=== PATIENT | male | born 1930 | race American Indian/Alaskan Native ===

== ENCOUNTER 2019-12-13 11:22 | Inpatient (IN) ==
[2019-12-13] MEDS ORDERED: IOPAMIDOL 100 ML BOTTLE IV ONE (11:23)
[2019-12-13] MEDS ORDERED: 0.9 % SODIUM CHLORIDE 1,000 ML IV ONE ×2 (11:28→14:56)
[2019-12-13] MEDS ORDERED: IPRATROPIUM/ALBUTEROL 3 ML AMPUL.NEB NEB ONE (12:11)
[2019-12-13] MEDS ORDERED: PIPERACILLIN SODIUM/TAZOBACTAM 3.375 GM in DEXTROSE 5% IN WATER 50 ML IV ONE (12:11)
[2019-12-13] MEDS ORDERED: ACETAMINOPHEN 325 MG TABLET PO ONE ×2 (12:13→13:57)
--- NOTE | 2019-12-13 12:22 | Emergency Department Note ---
Fever HPI - General Chief Complaint: Fever Stated Complaint: fever Time Seen by Provider: 12/13/19 11:27 Source: patient Mode of arrival: ambulatory Limitations: no limitations - History of Present Illness HPI Narrative: 89-year-old male comes in for high fever of 103+. He does get UTIs and has a history of prostate cancer. Has a history of sepsis as well. He did not know he had a fever but the visiting nurse this morning noticed a fever. He denies any nausea vomiting diarrhea or trouble breathing. He does have a chronic cough which he attributes to his COPD. He has not smoked since the 1950s. Denies any recent exposures or travel Notable gross hearing loss, so most history is from his -however he is answering questions appropriately - Related Data Home Medications Medication Instructions Recorded Confirmed aspirin 81 mg tablet,delayed 81 mg PO QDAY tab 04/09/15 12/13/19 release calcitriol 0.25 mcg capsule 0.25 mcg PO QDAY cap 04/09/15 12/13/19 travoprost 0.004 % eye drops 2.5 drp OPHTHALMIC ONCE ml 04/09/15 12/13/19 lisinopril 20 mg tablet 25 mg PO QDAY 10/05/16 12/13/19 ergocalciferol (vitamin D2) 1,000 2,000 unit PO QDAY cap 11/08/18 12/13/19 unit capsule glipizide 10 mg tablet 10 mg PO BID 11/08/18 12/13/19 insulin detemir U-100 100 unit/mL 15 unit SUB-Q QDAY ml 11/08/18 12/13/19 (3 mL) subcutaneous pen magnesium L-lactate 84 mg 168 mg PO BID 11/08/18 12/13/19 tablet,extended release timolol 0.5 % eye drops 1 drp OPHTHALMIC BID 02/15/19 12/13/19 Tamsulosin [Flomax] 1 tab PO DAILY 12/13/19 12/13/19 Previous Rx's Medication Instructions Recorded Acetaminophen [Tylenol] 650 mg PO Q4HP PRN #0 tab 10/26/15 Allergies Allergy/AdvReac Type Severity Reaction Status Date / Time No Known Drug Allergies Allergy Verified 12/13/19 11:28 Review of Systems All systems ED: reviewed and negative except as stated. Fever PMH - Past Medical History Attestation: Yes: The following information was validated with the patient. [facility] Narrative: Family History (Last Reviewed 02/22/19 @ 09:05 by Emily Webb, [place]) Sister Alcohol abuse Brother Diabetes mellitus Mother Multiple myeloma Father Acute myocardial infarction Stroke Family/Other Heart disease Medical History (Last Reviewed 02/22/19 @ 09:05 by Emily Webb RN) Dry eye (Chronic) Primary open angle glaucoma (Chronic) Worried well (Chronic) Pain in right arm (Chronic) Edema leg (Chronic) Hypotensive syncope (Chronic) UTI (urinary tract infection) (Chronic) Allergic rhinitis (Chronic) Tinea pedis (Chronic) Cellulitis of foot (Chronic) Sensory hearing loss, bilateral (Chronic) H/O echocardiogram (Chronic 2017) Uses hearing aid (Chronic) Pain, eye, right (Chronic) Diabetic peripheral neuropathy (Chronic) Abnormal carotid duplex scan (Chronic) Eosinophilia (Chronic) Colon polyps (Chronic) Carcinoma of prostate (Chronic) Punctate keratitis (Chronic) Tinea corporis (Chronic) Fatigue (Chronic) Herpes zoster (Chronic) Skin lesion (Chronic) Magnesium deficiency (Chronic) Rash (Chronic) Presbyopia (Chronic) Regular astigmatism (Chronic) Myopia (Chronic) Abnormal echocardiogram (Chronic) Vitamin B12 deficiency (Chronic) Edema (Chronic) Cellulitis (Chronic) Syncope due to orthostatic hypotension (Chronic) Multisensory dizziness (Chronic) Dressing change or removal, surgical wound (Chronic) Frequent nosebleeds (Chronic) Vertigo (Chronic) Bruises easily (Chronic) IBS (irritable bowel syndrome) (Chronic) Chronic UTI (Chronic) Laceration of face (Chronic) Sepsis (Chronic) Sepsis (Chronic) Atypical chest pain (Chronic) Retinopathy, diabetic, background (Chronic) History of prostate cancer (Chronic 08/14/14) Neuropathy in diabetes (Chronic) 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) Hyperlipidemia (Chronic) Hypertensive renal disease (Chronic) Controlled diabetes mellitus with neurological manifestations (Chronic) Counseling and coordination of care (Chronic) Chronic obstructive asthma (Chronic) Anemia (Chronic) COPD (chronic obstructive pulmonary disease) (Chronic) Hearing loss (Chronic) Kidney disease, chronic, stage III (GFR 30-59 ml/min) (Chronic) Meningioma (Chronic) Abnormal gait (Chronic) BPPV (benign paroxysmal positional vertigo) (Chronic) Eosinophilia (Chronic) Asthma (Chronic) Daytime somnolence (Chronic) Vitamin D deficiency (Chronic) Cataract (Chronic) Glaucoma (Chronic) Onychomycosis due to dermatophyte (Chronic) Colon polyps (Chronic) Melanosis coli (Chronic) Prostate cancer (Chronic) Microalbuminuria (Chronic) Diabetes mellitus, type II (Chronic) Psoriasis (Chronic) Hammer toe of left foot (Chronic) Hypertension (Chronic) Retinal tear (Chronic) Urinary incontinence (Chronic) Dysuria (Chronic) Hematuria (Chronic) Prostate cancer (Chronic) Past Surgical History (Last Reviewed 02/22/19 @ 09:05 by Emily Webb RN) Hx of cataract surgery (Chronic) Detached retina (Chronic 03/02/11) History of cholecystectomy (Chronic 2010) History of appendectomy (Chronic 1994) H/O eye surgery (Chronic) H/O mastoidectomy (Chronic) H/O prostate biopsy (Chronic) History of surgical removal of lesion (Chronic) S/P PICC central line placement (Chronic ~2015) S/P debridement (Chronic) S/P laser cataract surgery (Chronic) Medical history: Reports: cancer (Prostate), COPD, DM, hyperlipidemia, hypertension, renal disease, other Family history: Reports: non-contributory - Social History smoking status: Former smoker Alcohol use: Reports: None Drug use: Reports: none Physical Exam No acute distress resting comfortably. Normocephalic atraumatic. Bilateral eyes are with injected conjunctiva-he does have chronic glaucoma. No nasal discharge or congestion is noted. However he did cough twice during my interview and exam-he states this is his chronic COPD cough. Oropharynx is pink and moist. Neck is supple without lymphadenopathy or thyromegaly. Heart is regular rate and rhythm no murmur appreciated. Lungs are basically clear to auscultation but he does have end expiratory wheezing-tight breathing-but he can speak in full sentences and oxygen levels are okay. Abdomen is soft nontender nondistended. No peritoneal signs or guarding. No pedal edema. He can sit up for my exam with minimal assistance Limitations: no limitations Course Vital Signs Temperature 101.7 F H 12/13/19 11:23 Pulse Rate 135 H 12/13/19 11:23 Respiratory Rate 20 12/13/19 11:23 Blood Pressure 174/92 12/13/19 11:23 Pulse Oximetry (%) 93 12/13/19 11:23 Temperature 101.7 F H 12/13/19 11:23 Pulse Rate 135 H 12/13/19 11:23 Respiratory Rate 20 12/13/19 11:23 Blood Pressure 174/92 12/13/19 11:23 Pulse Oximetry (%) 93 12/13/19 11:23 Fever - Lab Data Lab results reviewed: Yes I reviewed the patient's lab results. Result diagrams: 12/13/19 11:39 12/13/19 11:39 Lab Results 12/13/19 12/13/19 12/13/19 Range/Units 11:39 11:39 11:39 WBC 14.5 H (4.50-11.00) K/mcL RBC 4.21 L (4.63-6.08) M/mcL Hgb 12.4 L (13.7-17.5) g/dL Hct 38.0 L (40.1-51.0) % MCV 90.3 (80.0-100.0) fL MCH 29.5 (26.0-34.0) pg MCHC 32.6 (31.0-36.0) g/dL RDW 13.2 (11.5-14.5) % Plt Count 244 (140-440) K/mcL MPV 9.6 (7.4-10.4) fL Gran % 90.5 H (38.0-78.0) % Lymph % (Auto) 3.5 L (15.5-49.0) % [place] % (Auto) 4.7 (1.0-12.0) % Eos % (Auto) 1.0 (0.0-7.0) % Baso % (Auto) 0.3 (0.0-2.0) % Gran # 13.13 H (1.80-8.00) K/mcL Lymph # (Auto) 0.50 L (1.50-4.80) K/mcL [place] # (Auto) 0.68 (0.10-0.90) K/mcL Eos # (Auto) 0.14 (0.00-0.70) K/mcL Baso # (Auto) 0.04 (0.00-0.30) K/mcL VBG Lactic Acid (0.5-2.0) mmol/L Sodium 130 L (133-145) mmol/L Potassium 4.8 (3.3-5.1) mmol/L Chloride 97 (96-108) mmol/L Carbon Dioxide 25 (22-30) mmol/L Anion Gap 8.0 (8-16) BUN 37 H (8-23) mg/dl Creatinine 1.4 H (0.7-1.2) mg/dl GFR Calculation 44 Glucose 269 H (70-105) mg/dL Calcium 8.9 (8.6-10.4) mg/dl Total Bilirubin 0.7 (0.0-1.0) mg/dL AST 28 (0-37) U/l ALT 26 (0-40) U/l Alkaline Phosphatase 128 H (39-117) U/L Total Protein 8.7 H (5.9-8.4) gm/dL Albumin 3.5 (3.2-5.2) gm/dL Globulin 5.2 H (2.2-3.7) gm/dL Albumin/Globulin Ratio 0.7 L (1.0-2.3) Procalcitonin 0.27 (<0.10) ng/mL Urine Color Urine Appearance Urine pH (5.0-9.0) Ur Specific [place] (1.000-1.035) Urine Protein (NEG) mg/dL Urine Glucose (UA) (NEG) mg/dL Urine Ketones (NEG) mg/dL Urine Occult Blood (<0.03) mg/dL Urine Nitrate (NEG) Urine Bilirubin (NEG) mg/dL Urine Urobilinogen (NEG) mg/dL Ur Leukocyte Esterase (NEG) /uL Urine RBC (0-1) /hpf Urine WBC (0-4) /hpf Ur Squamous Epith Cells (0-4) /hpf Urine Bacteria (0) /hpf Urine Mucus (0) /hpf Ur Culture Indicated? 12/13/19 12/13/19 Range/Units 11:39 12:00 WBC (4.50-11.00) K/mcL RBC (4.63-6.08) M/mcL Hgb (13.7-17.5) g/dL Hct (40.1-51.0) % MCV (80.0-100.0) fL MCH (26.0-34.0) pg MCHC (31.0-36.0) g/dL RDW (11.5-14.5) % Plt Count (140-440) K/mcL MPV (7.4-10.4) fL Gran % (38.0-78.0) % Lymph % (Auto) (15.5-49.0) % [place] % (Auto) (1.0-12.0) % Eos % (Auto) (0.0-7.0) % Baso % (Auto) (0.0-2.0) % Gran # (1.80-8.00) K/mcL Lymph # (Auto) (1.50-4.80) K/mcL [place] # (Auto) (0.10-0.90) K/mcL Eos # (Auto) (0.00-0.70) K/mcL Baso # (Auto) (0.00-0.30) K/mcL VBG Lactic Acid 1.0 (0.5-2.0) mmol/L Sodium (133-145) mmol/L Potassium (3.3-5.1) mmol/L Chloride (96-108) mmol/L Carbon Dioxide (22-30) mmol/L Anion Gap (8-16) BUN (8-23) mg/dl Creatinine (0.7-1.2) mg/dl GFR Calculation Glucose (70-105) mg/dL Calcium (8.6-10.4) mg/dl Total Bilirubin (0.0-1.0) mg/dL AST (0-37) U/l ALT (0-40) U/l Alkaline Phosphatase (39-117) U/L Total Protein (5.9-8.4) gm/dL Albumin (3.2-5.2) gm/dL Globulin (2.2-3.7) gm/dL Albumin/Globulin Ratio (1.0-2.3) Procalcitonin (<0.10) ng/mL Urine Color Yellow Urine Appearance Clear Urine pH 6.0 (5.0-9.0) Ur Specific [place] 1.016 (1.000-1.035) Urine Protein 30 A (NEG) mg/dL Urine Glucose (UA) 50 A (NEG) mg/dL Urine Ketones Neg (NEG) mg/dL Urine Occult Blood 0.03 A (<0.03) mg/dL Urine Nitrate Neg (NEG) Urine Bilirubin Neg (NEG) mg/dL Urine Urobilinogen Neg (NEG) mg/dL Ur Leukocyte Esterase Neg (NEG) /uL Urine RBC 4 H (0-1) /hpf Urine WBC 4 (0-4) /hpf Ur Squamous Epith Cells < 1 (0-4) /hpf Urine Bacteria Mod A (0) /hpf Urine Mucus Few (0) /hpf Ur Culture Indicated? Yes Urinalysis [id number]-[id number]-ipdr dipstick shows positive nitrites small amount of blood with specific gravity 1.015. This is sent for culture Influenza swab for a and B is negative - Radiology Data Radiology results reviewed: Yes I reviewed the patient's radiology results. Chest x-ray shows evidence of mild CHF but no infiltrate Disposition Pt seen by DIRECTOR OF VOCATIONAL GUIDANCE/PA only: No Clinical Impression: SIRS (systemic inflammatory response syndrome) UTI (urinary tract infection) Qualifiers: Urinary tract infection type: acute cystitis Hematuria presence: with hematuria Qualified Code(s): N30.01 - Acute cystitis with hematuria COPD (chronic obstructive pulmonary disease) Qualifiers: COPD type: unspecified COPD Qualified Code(s): J44.9 - Chronic obstructive pulmonary disease, unspecified CHF (congestive heart failure) Qualifiers: Heart failure type: unspecified Heart failure chronicity: chronic Qualified Code(s): I50.9 - Heart failure, unspecified Summary: Fever with evidence of UTI so this may be just sepsis from the UTI-we will start antibiotic with Zosyn after blood cultures. Start IV fluids and get lab oratory. However he does have cough with wheezing so COPD with exacerbation is also possible. Ordered chest x-ray, screen for flu. There are other entities in the differential of fever in an [id number]-so we will reevaluate after chest x-ray flu screen and laboratory. In the meantime I did wear PPE and patient was transferred to an isolation room because we are going to nebulize DuoNeb Chest x-ray shows evidence of mild CHF. T BNP is ordered. He is not complaining of difficulty with breathing Laboratories is consistent with UTI with SIRS. Lactic acid is normal but procalcitonin is elevated. Discussed this patient's situation with Dr. Brown, hospitalist. He agreed to accept the patient but recommended we get a CT of the chest to further sort this out. Recommended treatment as well for CHF so we will start furosemide Disposition: Xfer As Inpt ([facility]) Condition: Serious Referrals: TristianRogelio hernadez ARNP [Primary Care Provider] -
[2019-12-13 12:34] LABS: Basophils # (Auto) 0.04 K/mcL (0.00-0.30); Basophils % (Auto) 0.3 % (0.0-2.0); Eosinophils # (Auto) 0.14 K/mcL (0.00-0.70); Granulocytes % (Auto) 90.5 % (38.0-78.0); Hemoglobin 12.4 g/dL (13.7-17.5); Lymphocytes % (Auto) 3.5 % (15.5-49.0); Mean Cell Volume 90.3 fL (80.0-100.0); Mean Corpuscular HGB Conc 32.6 g/dL (31.0-36.0); Mean Platelet Volume 9.6 fL (7.4-10.4); Monocytes # (Auto) 0.68 K/mcL (0.10-0.90); Monocytes % (Auto) 4.7 % (1.0-12.0); Platelet Count 244 K/mcL (140-440); RBC 4.21 M/mcL (4.63-6.08); Red Cell Distribution Width 13.2 % (11.5-14.5); WBC 14.5 K/mcL (4.50-11.00)
[2019-12-13 12:48] LABS: ALT/SGPT 26 U/l (0-40); AST/SGOT 28 U/l (0-37); Albumin 3.5 gm/dL (3.2-5.2); Albumin/Globulin Ratio 0.7 (1.0-2.3); Alkaline Phosphatase 128 U/L (39-117); Bilirubin,Total 0.7 mg/dL (0.0-1.0); Blood Urea Nitrogen 37 mg/dl (8-23); Calcium 8.9 mg/dl (8.6-10.4); Carbon Dioxide 25 mmol/L (22-30); Chloride 97 mmol/L (96-108); Globulin 5.2 gm/dL (2.2-3.7); Glomerular Filtration Rate 44; Glucose 269 mg/dL (70-105)
[2019-12-13 13:01] LABS: Appearance,Urine CLEAR; Bacteria,Urine MOD /hpf (0); Bilirubin,Urine NEG (NEG); Color,Urine YELLOW; Culture Indicated,Urine YES; Glucose,Urine (UA) 50 mg/dL (NEG); Ketones,Urine NEG (NEG); Leukocyte Esterase,Urine NEG /uL (NEG); Mucus,Urine FEW /hpf (0); Nitrate,Urine NEG (NEG); Protein,Urine 30 mg/dL (NEG); Specific Gravity,Urine 1.016 (1.000-1.035); Urine Blood 0.03 mg/dL (<0.03); Urine RBC 4 /hpf (0-1); Urine Squamous Epithelial Cell < 1 /hpf (0-4); Urine WBC 4 /hpf (0-4); Urobilinogen,Urine NEG (NEG)
--- NOTE | 2019-12-13 13:08 | XRay Report ---
CLINICAL INFORMATION: fever COMPARISON: 03/28/2016 FINDINGS: The heart is moderately enlarged but unchanged. Mediastinum is unremarkable. Pulmonary vessels are mildly distended and there is mild peribronchovascular edema. Minor airspace disease in the right medial base is likely atelectasis. Moderate chronic elevation left diaphragm resulting in minor atelectasis seen as before. No effusions IMPRESSION: Moderate CHF. Moderate chronic elevation left diaphragm - stable. Subsegmental bibasilar atelectasis Interpreted and Authenticated by: Fahad Walden 12/13/19
[2019-12-13] MEDS ORDERED: FUROSEMIDE 20 MG/2 ML VIAL IV ONE (13:42)
--- NOTE | 2019-12-13 13:57 | Internal Med History&Physical ---
Medical - H&P: HPI Patient information: Note initiated : 12/13/19 at 1:54 pm Service Date, if different from initiated Date: [] Patient: Shivam Medley a 89 y/o M admitted on for fever. Chief Complaint: [] Chief complaint: Fever and mental status change History of present illness: Mr. Medley is a 89 year old M with a history of CKD stage IIIb,, DM type II, prostate cancer and hypertension who presents to the ER with increasing confusion/high-grade fever 103. Symptoms started few hours prior to presentation, per family he was doing fine and was able to perform ADLs until yesterday. Symptoms have progressively gotten progressively worse with change in mental status. He has subsequently evaluated at [facility] ER where initial work-up was consistent with congestive heart failure and sepsis. Following a dose of Lasix patient became hypotensive and was promptly started on vasopr essors for concerns of septic shock with evidence of endorgan dysfunction/leukocytosis. Patient remains tachycardic tachypneic and hypotensive. No clear source was identified. Hospitalist service was consulted for admission in light of above. At the time evaluation patient is fatigued lethargic and drowsy and unable to provide detailed history. Most of the history is obtained to review medical records and ER physician. Patient lives at home with his Apur[employer] cuevas who left prior to my visit. Patient denies chest pain, lightheadedness, diarrhea, skin rash, joint pain. He does endorse to fever and chills. Review of systems A 10 point review system was performed and is negative except was cussed above Medical - H&P: PMH Medical history: Dry eye (Chronic) Primary open angle glaucoma (Chronic) Worried well (Chronic) Pain in right arm (Chronic) Edema leg (Chronic) Hypotensive syncope (Chronic) UTI (urinary tract infection) (Chronic) Allergic rhinitis (Chronic) Tinea pedis (Chronic) Cellulitis of foot (Chronic) Sensory hearing loss, bilateral (Chronic) H/O echocardiogram (Chronic 2017) Moderate enlarged LVH and LA Uses hearing aid (Chronic) Pain, eye, right (Chronic) Diabetic peripheral neuropathy (Chronic) Abnormal carotid duplex scan (Chronic) Eosinophilia (Chronic) Colon polyps (Chronic) Carcinoma of prostate (Chronic) Punctate keratitis (Chronic) Tinea corporis (Chronic) Fatigue (Chronic) Herpes zoster (Chronic) Skin lesion (Chronic) Magnesium deficiency (Chronic) Rash (Chronic) Presbyopia (Chronic) Regular astigmatism (Chronic) Myopia (Chronic) Abnormal echocardiogram (Chronic) Vitamin B12 deficiency (Chronic) Edema (Chronic) Cellulitis (Chronic) Syncope due to orthostatic hypotension (Chronic) Multisensory dizziness (Chronic) Dressing change or removal, surgical wound (Chronic) Frequent nosebleeds (Chronic) Vertigo (Chronic) Bruises easily (Chronic) IBS (irritable bowel syndrome) (Chronic) Chronic UTI (Chronic) Laceration of face (Chronic) Sepsis (Chronic) Sepsis (Chronic) Atypical chest pain (Chronic) Retinopathy, diabetic, background (Chronic) History of prostate cancer (Chronic 08/14/14) Neuropathy in diabetes (Chronic) 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) Hyperlipidemia (Chronic) Hypertensive renal disease (Chronic) Controlled diabetes mellitus with neurological manifestations (Chronic) Counseling and coordination of care (Chronic) Chronic obstructive asthma (Chronic) Anemia (Chronic) COPD (chronic obstructive pulmonary disease) (Chronic) Hearing loss (Chronic) Kidney disease, chronic, stage III (GFR 30-59 ml/min) (Chronic) Meningioma (Chronic) Abnormal gait (Chronic) BPPV (benign paroxysmal positional vertigo) (Chronic) Eosinophilia (Chronic) Asthma (Chronic) Daytime somnolence (Chronic) Vitamin D deficiency (Chronic) Cataract (Chronic) Bilateral Glaucoma (Chronic) Bilateral Onychomycosis due to dermatophyte (Chronic) Colon polyps (Chronic) Melanosis coli (Chronic) Prostate cancer (Chronic) 2nd occurance Microalbuminuria (Chronic) Diabetes mellitus, type II (Chronic) Psoriasis (Chronic) Hammer toe of left foot (Chronic) Hypertension (Chronic) Retinal tear (Chronic) Urinary incontinence (Chronic) Dysuria (Chronic) Hematuria (Chronic) Prostate cancer (Chronic) Surgical History Hx of cataract surgery (Chronic) Detached retina (Chronic 03/02/11) History of cholecystectomy (Chronic 2010) History of appendectomy (Chronic 1994) H/O eye surgery (Chronic) Drainage of eye, incise inner eye adhesions, H/O mastoidectomy (Chronic) H/O prostate biopsy (Chronic) History of surgical removal of lesion (Chronic) Hand, scrotum S/P PICC central line placement (Chronic ~2015) S/P debridement (Chronic) Toenail S/P laser cataract surgery (Chronic) After cataract Family History Sister Alcohol abuse Brother Diabetes mellitus Mother Multiple myeloma Father Acute myocardial infarction Stroke Family/Other Heart disease Social History marital status: service: Yes occupation: Administrative for [employer] smoking status: Former smoker alcohol intake frequency: does not drink substance use type: does not use Medical - H&P: Meds Home Medications Medication Instructions Recorded Confirmed Type aspirin 81 mg tablet,delayed 81 mg PO QDAY tab 04/09/15 12/13/19 History release calcitriol 0.25 mcg capsule 0.25 mcg PO QDAY cap 04/09/15 12/13/19 History travoprost 0.004 % eye drops 2.5 drp OPHTHALMIC ONCE ml 04/09/15 12/13/19 History Acetaminophen [Tylenol] 650 mg PO Q4HP PRN #0 tab 10/26/15 12/13/19 Rx lisinopril 20 mg tablet 25 mg PO QDAY 10/05/16 12/13/19 History ergocalciferol (vitamin D2) 1,000 2,000 unit PO QDAY cap 11/08/18 12/13/19 History unit capsule glipizide 10 mg tablet 10 mg PO BID 11/08/18 12/13/19 History insulin detemir U-100 100 unit/mL 15 unit SUB-Q QDAY ml 11/08/18 12/13/19 History (3 mL) subcutaneous pen magnesium L-lactate 84 mg 168 mg PO BID 11/08/18 12/13/19 History tablet,extended release timolol 0.5 % eye drops 1 drp OPHTHALMIC BID 02/15/19 12/13/19 History Tamsulosin [Flomax] 1 tab PO DAILY 12/13/19 12/13/19 History Allergies Allergy/AdvReac Type Severity Reaction Status Date / Time No Known Drug Allergies Allergy Verified 12/13/19 11:28 Medical - H&P: Exam - Constitutional Vitals: Temp Pulse Resp BP Pulse Ox 101.7 F H 135 H 20 174/92 93 12/13/19 11:23 12/13/19 11:23 12/13/19 11:23 12/13/19 11:23 12/13/19 11:23 General appearance: no acute distress Exam: Fatigue lethargic Head normocephalic Oral cavity dry No ear nose discharge Neck lymphadenopathy S1-S2 occasionally irregular ESM grade 1 Bilateral diminished breath sounds late inspiratory crackles Abdomen soft nontender Lower extremity minimal pitting edema No cyanosis clubbing or joint swelling Skin no suspicious lesion Psych lethargic/drowsy Neuro nonfocal Medical - H&P: Reslt - Labs CBC & Chem 7: 12/13/19 11:39 12/13/19 11:39 Labs: Short CBC 12/13/19 Range/Units 11:39 WBC 14.5 H (4.50-11.00) K/mcL Hgb 12.4 L (13.7-17.5) g/dL Hct 38.0 L (40.1-51.0) % Plt Count 244 (140-440) K/mcL BMP 12/13/19 11:39 Sodium 130 L Potassium 4.8 Chloride 97 Carbon Dioxide 25 BUN 37 H Creatinine 1.4 H Glucose 269 H Calcium 8.9 Liver Function 12/13/19 Range/Units 11:39 Total Bilirubin 0.7 (0.0-1.0) mg/dL AST 28 (0-37) U/l ALT 26 (0-40) U/l Alkaline Phosphatase 128 H (39-117) U/L Albumin 3.5 (3.2-5.2) gm/dL Urine 12/13/19 Range/Units 12:00 Urine Color Yellow Urine Appearance Clear Urine pH 6.0 (5.0-9.0) Ur Specific [place] 1.016 (1.000-1.035) Urine Protein 30 A (NEG) mg/dL Urine Glucose (UA) 50 A (NEG) mg/dL Medical - H&P: A/P (1) Severe sepsis Current visit: Yes Status: Acute * Septic shock with endorgan dysfunction including altered mental status. Ag gressive work-up/antibiotic coverage/pancultures/hemodynamic monitoring. Possible source underlying chronic bacterial prostatitis, no other evident source * Hypoxic respiratory failure * Acute decompensated heart failure-echocardiogram/hold diuresis until systolics improve. Optimize CHF management based on echo finding. * Chronic disease stage IIIb-monitor renal function. * Asymptomatic bacteriuria-sleep followed by Dr. Nicole. Not on prophylaxis. * History of prostate cancer follows up with Dr. Arias. On tamsulosin. * DM type II on basal prandial insulin/hold glipizide * Suboptimally controlled hypertension continue lisinopril * Glaucoma continue travoprost * Full code * Prophylaxis heparin Plan * Inpatient admission, [place] 2 score 18 indicating high risk mortality * Vasopressors * Central venous access * Sepsis management/source evaluation/pancultures * Echocardiogram * Prior medical condition management home meds * Broad antibiotic coverage * Noninvasive ventilation if indicated Critical time spent in excess of 25 minutes in addition to time spent on history and physical
--- NOTE | 2019-12-13 14:41 | Cat Scan Report ---
CLINICAL INFORMATION: Wheezing and fever COMPARISON: X-ray 12/12/2000. TECHNIQUE: 80 cc of Isovue-370 were injected intravenously, and 25 seconds later, 0.625 mm helical slices were obtained from the lung apices through the bases. Following reconstruction, 2.5 mm sagittal, coronal and axial reformations were processed and reviewed at lung, mediastinal and bone windows. 7 mm axial MIPS were also obtained to optimize pulmonary nodule detection. The exam was performed using radiation dose optimization techniques including, but not limited to, automated exposure control, adjustment of the mA and/or kV according to patient size and use of iterative reconstruction technique. FINDINGS: Mediastinal windows show moderate cardiomegaly with left ventricular hypertrophy. There is moderately heavy calcific plaque in the left main and LAD coronary arteries and also scattered throughout the remaining coronary arteries. Calcification seen in the aortic valve. The pulmonary arteries are enlarged - both peripherally and centrally. Central pulmonary artery is 3.9 cm. Thoracic aorta and is normal in diameter with diffuse intimal thickening. There is no adenopathy in the mediastinal hilar or axillary region. The thyroid is diminutive. The esophagus is grossly normal. Pulmonary parenchymal windows show mild peribronchovasculature and interstitial edema compatible with moderate congestive heart failure. There are no focal infiltrates or effusions. Bone windows show moderate degenerative disease throughout the mid thoracic spine. IMPRESSION: Moderate CHF. No evidence of pneumonia. Moderate chronic elevation left diaphragm with minor left basilar atelectasis. Interpreted and Authenticated by: Fahad Walden 12/13/19
[2019-12-13] MEDS: NOREPINEPHRINE BITARTRATE 8 MG in 0.9 % SODIUM CHLORIDE 242 ML IV SCH (15:35)
[2019-12-13] MEDS ORDERED: ONDANSETRON 4 MG/2 ML VIAL IV PRN (16:37)
[2019-12-13] MEDS ORDERED: VANCOMYCIN PER PHARMACY IV SCH (16:37)
[2019-12-13] MEDS ORDERED: ACETAMINOPHEN 650 MG/65 ML BOTTLE IV PRN (16:37)
[2019-12-13] MEDS ORDERED: POTASSIUM CHLORIDE 20 MEQ PACKET PO PRN (16:37)
[2019-12-13] MEDS ORDERED: DEXTROSE 31 GM ORAL.SUSP PO PRN (16:37)
[2019-12-13] MEDS ORDERED: METOPROLOL TARTRATE 5 MG/5 ML VIAL IV PRN (16:37)
[2019-12-13] MEDS ORDERED: ACETAMINOPHEN 325 MG TABLET PO PRN (16:37)
[2019-12-13] MEDS ORDERED: ONDANSETRON 4 MG ODT TABLET SL PRN (16:37)
[2019-12-13] MEDS ORDERED: DEXTROSE 50% 50 ML VIAL IV PRN (16:37)
[2019-12-13] MEDS ORDERED: BISACODYL 10 MG SUPP.RECT PR PRN (16:37)
[2019-12-13] MEDS ORDERED: hydrALAZINE 20 MG/ML VIAL IV PRN (16:37)
[2019-12-13] MEDS ORDERED: POLYETHYLENE GLYCOL 3350 17 GM PACKET PO PRN (16:37)
[2019-12-13] MEDS: INSULIN LISPRO 1 UNIT/0.01 ML UNIT SQ SCH ×2 (16:43→21:38)
[2019-12-13] MEDS: 0.9 % SODIUM CHLORIDE 10 ML SYRINGE IV SCH ×2 (16:44→21:39)
[2019-12-13] MEDS: 0.9 % SODIUM CHLORIDE 250 ML IV SCH (16:46)
[2019-12-13] MEDS: FUROSEMIDE 40 MG/4 ML VIAL IV SCH (16:48)
[2019-12-13] MEDS: PIPERACILLIN SODIUM/TAZOBACTAM 3.375 GM in DEXTROSE 5% IN WATER 50 ML IV SCH ×2 (18:19→23:49)
[2019-12-13] MEDS: VANCOMYCIN 1,500 MG in 0.9 % SODIUM CHLORIDE 500 ML IV SCH (19:11)
[2019-12-13] MEDS: SENNOSIDES/DOCUSATE SODIUM 1 TAB TABLET PO SCH (20:42)
[2019-12-13] MEDS: DOCUSATE SODIUM 100 MG CAPSULE PO SCH (20:42)
[2019-12-13] MEDS ORDERED: MELATONIN 3 MG TABLET PO PRN (21:00)
[2019-12-13] MEDS: HEPARIN 5,000 UNIT/ML VIAL SQ SCH (21:47)
[2019-12-14] MEDS: 0.9 % SODIUM CHLORIDE 10 ML SYRINGE IV SCH ×4 (05:51→23:48)
[2019-12-14] MEDS: 0.9 % SODIUM CHLORIDE 250 ML IV SCH ×2 (05:51→17:49)
[2019-12-14] MEDS: NOREPINEPHRINE BITARTRATE 8 MG in 0.9 % SODIUM CHLORIDE 242 ML IV SCH ×2 (05:51→17:49)
[2019-12-14] MEDS: PIPERACILLIN SODIUM/TAZOBACTAM 3.375 GM in DEXTROSE 5% IN WATER 50 ML IV SCH ×2 (05:51→15:13)
[2019-12-14 05:58] LABS: Hematocrit 33.4 % (40.1-51.0); Hemoglobin 10.9 g/dL (13.7-17.5); Mean Corpuscular HGB Conc 32.6 g/dL (31.0-36.0); Mean Platelet Volume 9.7 fL (7.4-10.4); Platelet Count 187 K/mcL (140-440); RBC 3.71 M/mcL (4.63-6.08); Red Cell Distribution Width 13.3 % (11.5-14.5); WBC 20.8 K/mcL (4.50-11.00)
[2019-12-14 06:12] LABS: ALT/SGPT 21 U/l (0-40); AST/SGOT 23 U/l (0-37); Albumin 2.9 gm/dL (3.2-5.2); Albumin/Globulin Ratio 0.7 (1.0-2.3); Alkaline Phosphatase 87 U/L (39-117); Bilirubin,Direct < 0.2 mg/dL (0.0-0.3); Bilirubin,Total 0.6 mg/dL (0.0-1.0); Blood Urea Nitrogen 39 mg/dl (8-23); Calcium 8.5 mg/dl (8.6-10.4); Carbon Dioxide 23 mmol/L (22-30); Chloride 101 mmol/L (96-108); Globulin 4.4 gm/dL (2.2-3.7); Glucose 284 mg/dL (70-105); Lactate Dehydrogenase 288 U/L (94-250); Phosphorous 2.7 mg/dL (2.7-4.5); Triglycerides 34 mg/dl (<150); Uric Acid 5.9 mg/dL (2.5-8.0)
[2019-12-14 06:15] LABS: Glomerular Filtration Rate 35
[2019-12-14 07:36] LABS: Band Neutrophils % 5 % (0-10); Lymphocytes % 4 % (15-49); Monocytes % (Manual) 9 % (1-12); Platelet Estimate NORMAL (NORMAL); RBC Morphology NORMAL (NORMAL); Segmented Neutrophils % 82 % (38-78)
[2019-12-14] MEDS: INSULIN LISPRO 1 UNIT/0.01 ML UNIT SQ SCH ×4 (08:40→21:22)
[2019-12-14] MEDS: FUROSEMIDE 40 MG/4 ML VIAL IV SCH ×2 (08:40→17:24)
[2019-12-14] MEDS: sitaGLIPtin 50 MG TABLET PO SCH (08:41)
[2019-12-14] MEDS: MULTIVIT,THER IRON,CA,FA & MIN 1 TABLET PO SCH (08:41)
[2019-12-14] MEDS: HEPARIN 5,000 UNIT/ML VIAL SQ SCH ×2 (08:41→21:15)
[2019-12-14] MEDS: DOCUSATE SODIUM 100 MG CAPSULE PO SCH ×2 (08:41→21:19)
[2019-12-14] MEDS: THIAMINE 100 MG TABLET PO SCH (08:41)
[2019-12-14] MEDS: MAGNESIUM SULFATE 2 GM/50 ML BAG IV PRN (08:42)
--- NOTE | 2019-12-14 10:50 | Internal Med Progress Note ---
Medical - PN: Subj Patient information: Note initiated : 12/14/19 at 10:43 am Service Date, if different from initiated Date: [] Patient: Shivam Medley a 89 y/o M admitted on 12/13/19 for fever. Chief Complaint: [] Interval history: Mr. Medley is a 89 year old M with a history of CKD stage IIIb,, DM type II, prostate cancer and hypertension who presents to the ER with increasing confusion/high-grade fever 103. Symptoms started few hours prior to presentation, per family he was doing fine and was able to perform ADLs until yesterday. Symptoms have progressively gotten progressively worse with change in mental status. He has subsequently evaluated at [facility] ER where initial work-up was consistent with congestive heart failure and sepsis. Following a dose of Lasix patient became hypotensive and was promptly started on vasopressors for concerns of septic shock with evidence of endorgan dysfunction /leukocytosis. Patient remains tachycardic tachypneic and hypotensive. No clear source was identified. Hospitalist service was consulted for admission in light of above. At the time evaluation patient is fatigued lethargic and drowsy and unable to provide detailed history. Most of the history is obtained to review medical records and ER physician. Patient lives at home with his [employer] cuevas who left prior to my visit. Patient denies chest pain, lightheadedness, diarrhea, skin rash, joint pain. He does endorse to fever and chills. 12/13-patient in septic shock. White count 20,800. Cultures negative so far. On vasopressors to keep map at goal. Creatinine 1.7. Ultrasound kidneys today to rule out obstructive uropathy/pyelonephritis. Avoid contrast in light of elevated creatinine. Positive blood culture for gram-positive cocci. Repeat surveillance cultures. Echocardiogram pending. ID consult. Patient remains critically ill - Constitutional Vitals: Vital Signs Temp Pulse Resp BP Pulse Ox 98.1 F 101 H 19 116/54 100 12/14/19 08:01 12/13/19 16:46 12/14/19 10:23 12/14/19 09:32 12/14/19 09:16 Period Temp Pulse Resp BP Sys/[place] Pulse Ox Last 24 Hr 97.8 F-101.7 F 64-135 15-33 82-219/40-200 89-100 Intake and Output 12/13/19 12/14/19 12/14/19 21:59 05:59 13:59 Intake Total 1145 566 50 Output Total 375 600 150 Balance 770 -34 -100 Weight 202 lb 12.8 oz Intake & Output: Intake & Output 12/13/19 12/14/19 12/14/19 21:59 05:59 13:59 Intake Total 1145 566 50 Output Total 375 600 150 Balance 770 -34 -100 Weight 202 lb 12.8 oz Intake: IV 1145 566 50 Sodium Chloride 0.9% 1,000 ml @ 1000 250 mls/hr IV ONCE ONE Rx#: [id number] Levophed 8 mg In Sodium 95 16 Chloride 0.9% 242 ml @ 10 MCG/ MIN 18.75 mls/hr IV Q14H [facility] Rx #:[id number] Zosyn 3.375 gm In Dextrose 5% 50 50 50 in Water 50 ml @ 100 mls/hr IV Q6H [facility] Rx#:[id number] Vancomycin 1,500 mg In Sodium 500 Chloride 0.9% 500 ml @ 333.3 mls/hr IV DAILY [facility] Rx#: [id number] Output: Void Amount 375 600 150 Other: Stool Size Moderate Stool Color Brown Yellow Stool Consistency Soft # Bowel Movements 1 1 # of times incontinent of 0 Bowels General appearance: no acute distress Exam: Remains fatigued lethargic On pressors Nondistended abdomen Tachycardia/occasionally irregular intermittent Medical - PN: Obj Da - Labs CBC & Chem 7: 12/14/19 04:55 12/14/19 04:55 Labs: Abnormal Lab Results 12/14/19 12/14/19 12/13/19 04:55 04:55 12:00 WBC 20.8 H RBC 3.71 L Hgb 10.9 L Hct 33.4 L Gran % Lymph % (Auto) Gran # Lymph # (Auto) Seg Neutrophils % 82 H Lymphocytes % 4 L Sodium BUN 39 H Creatinine 1.7 H Glucose 284 H Calcium 8.5 L Magnesium 1.4 L Alkaline Phosphatase Lactate Dehydrogenase 288 H Total Protein Albumin 2.9 L Globulin 4.4 H Albumin/Globulin Ratio 0.7 L Urine Protein 30 A Urine Glucose (UA) 50 A Urine Occult Blood 0.03 A Urine RBC 4 H Urine Bacteria Mod A 12/13/19 12/13/19 11:39 11:39 WBC 14.5 H RBC 4.21 L Hgb 12.4 L Hct 38.0 L Gran % 90.5 H Lymph % (Auto) 3.5 L Gran # 13.13 H Lymph # (Auto) 0.50 L Seg Neutrophils % Lymphocytes % Sodium 130 L BUN 37 H Creatinine 1.4 H Glucose 269 H Calcium Magnesium Alkaline Phosphatase 128 H Lactate Dehydrogenase Total Protein 8.7 H Albumin Globulin 5.2 H Albumin/Globulin Ratio 0.7 L Urine Protein Urine Glucose (UA) Urine Occult Blood Urine RBC Urine Bacteria Meds: Medications Acetaminophen (Tylenol) 650 mg PO Q4-6HP PRN; Protocol PRN Reason: Per Pain Protocol/Fever > 101 Bisacodyl (Dulcolax) 10 mg MD Q2-3DAYS PRN PRN Reason: Constipation Dextrose (Dextrose 50%) 0 ml IV UD PRN PRN Reason: Hypoglycemia Diagnostic Test (Pha) (Accu-Chek) 1 each FS ACHS [facility] Last Admin: 12/14/19 08:40 Dose: 1 each Documented by: Docusate Sodium (Colace) 100 mg PO BID [facility] Last Admin: 12/14/19 08:41 Dose: 100 mg Documented by: Furosemide (Lasix) 20 mg IV BIDD [facility] Last Admin: 12/14/19 08:40 Dose: 20 mg Documented by: Glucose (Insta-Glucose) 15 gm PO PRN PRN PRN Reason: Hypoglycemia Heparin Sodium (Porcine) (Heparin) 5,000 unit SQ Q12 [facility] Last Admin: 12/14/19 08:41 Dose: 5,000 unit Documented by: Hydralazine HCl (Apresoline) 10 mg IV Q4-6HP PRN PRN Reason: Hypertension Norepinephrine Bitartrate 8 mg (/ Sodium Chloride) 250 mls @ 18.75 mls/hr IV Q14H [facility]; Protocol Last Admin: 12/14/19 05:51 Dose: Not Given Documented by: Acetaminophen (Ofirmev) 650 mg in 65 mls @ 130 mls/hr IV Q6HP PRN; Protocol PRN Reason: Per Pain Protocol/Fever > 101 Magnesium Sulfate (Magnesium Sulfate) 2 gm in 50 mls @ 50 mls/hr IV UD PRN PRN Reason: MG = or < 1.7 Last Admin: 12/14/19 08:42 Dose: 50 mls/hr Documented by: Piperacillin Sod/Tazobactam (Sod 3.375 gm/ Dextrose) 50 mls @ 100 mls/hr IV Q6H [facility]; Protocol Last Infusion: 12/14/19 06:35 Dose: Infused Documented by: Sodium Chloride (Sodium Chloride 0.9%) 250 mls @ 20 mls/hr IV .[id number] [facility] Last Admin: 12/14/19 05:51 Dose: Not Given Documented by: Vancomycin HCl 1,500 mg/ (Sodium Chloride) 500 mls @ 333.3 mls/hr IV DAILY [facility] Last Infusion: 12/14/19 03:04 Dose: Infused Documented by: Insulin Human Lispro (Humalog) 0 unit SQ ACHS [facility]; Protocol Last Admin: 12/14/19 08:40 Dose: 3 units Documented by: Iron Carb/Multivit/[place]/Folic Acid (Multivitamin W/Minerals) 1 tab PO DAILY [facility] Last Admin: 12/14/19 08:41 Dose: 1 tab Documented by: Melatonin (Melatonin 3mg Tablet) 3 mg PO HSP PRN PRN Reason: Insomnia Metoprolol Tartrate (Lopressor) 5 mg IV Q5M PRN PRN Reason: Heart Rate > 140 bpm Mupirocin (Bactroban Oint 2%) 1 dose NARES BID [facility] Ondansetron HCl (Zofran Odt) 4 mg SL Q4-6HP PRN; Protocol PRN Reason: Nausea And Vomiting Ondansetron HCl (Zofran) 4 mg IV Q4-6HP PRN; Protocol PRN Reason: Nausea And Vomiting Polyethylene Glycol (Miralax) 17 gm PO DAILYP PRN PRN Reason: Constipation Potassium Chloride (Klor-Con) 40 meq PO DAILYP PRN PRN Reason: K+ < 3.5 Senna/Docusate Sodium (Senna Plus Tablet) 1 tab PO HS [facility] Last Admin: 12/13/19 20:42 Dose: Not Given Documented by: Sitagliptin Phosphate (Januvia) 50 mg PO DAILY [facility] Last Admin: 12/14/19 08:41 Dose: 50 mg Documented by: Sodium Chloride (Saline Flush) 10 ml IV Q8 [facility] Last Admin: 12/14/19 05:51 Dose: 10 ml Documented by: Thiamine HCl (Vitamin B1) 100 mg PO DAILY [facility] Last Admin: 12/14/19 08:41 Dose: 100 mg Documented by: Vancomycin HCl (Vancomycin Per Pharmacy) 1 order IV UD [facility]; Protocol Medical - PN: A/P - Time Spent With Patient Total time spent is greater than 50% in coordination of care (as documented) at patient's floor/unit and/or counseling patient: Greater than 35 minutes (Critical care time) (1) Severe sepsis Status: Acute Assessment and plan: * Septic shock with endorgan dysfunction including altered mental status/SUMAN. Aggressive work-up/antibiotic coverage/pancultures/hemodynamic monitoring. Underlying chronic bacterial prostatitis * Gram-positive bacteremia unclear source. ID consult. CT with contrast carotid performed due to elevated creatinine. Denies joint swelling. Abdominal ultrasound to rule out focal abscess/pyelonephritis * Acute on chronic stage IIIb renal failure-secondary to septic shock. Continue monitoring * Acute decompensated heart failure-echocardiogram. Optimize CHF management based on echo finding one septic shock resolves. * Asymptomatic bacteriuria-sleep followed by Dr. Nicole. Not on prophylaxis. * History of prostate cancer follows up with Dr. Arias. On tamsulosin. * DM type II on basal prandial insulin/held glipizide * History of hypertension-medications on hold in light of shock. * Glaucoma continue travoprost * Full code * Prophylaxis heparin Plan * Continue vasopressors/septic shock management per guidelines * Central line * Surveillance blood cultures * ID consult * Echocardiogram * Prior medical condition management home meds * Broad antibiotic coverage * Noninvasive ventilation if indicated Current Visit: Yes Medical - PN: Qual - VTE Deep Vein Thrombosis/Pulmonary Embolism Present on Admission: No
--- NOTE | 2019-12-14 12:42 | Ultrasound Report ---
CLINICAL INFORMATION: Pyelonephritis possible obstructive uropathy. COMPARISON: 11/10/2011 FINDINGS: Both kidneys are normal and symmetric in size, position, configuration and echotexture: The right is 13 x 5 cm and the left 13 x 5 cm. A 3.6 cm cyst in the mid left kidney is unchanged. There is no hydronephrosis stone or solid lesion. Arterial blood flow is normal to both kidneys on color Doppler. Urinary bladder -252 cc the patient was unable to void. Prostate volume is slightly elevated at 39 cc IMPRESSION: 1. 3.6 cm simple cyst mid left kidney. No significant renal abnormality. 2. Mild prostate enlargement. Patient was unable to void Interpreted and Authenticated by: Fahad Walden 12/14/19
--- NOTE | 2019-12-14 13:13 | Procedure Note ---
Procedures - Central Line Placement Right IJ Consent obtained: verbal consent Time out performed: Yes Patient placed on monitor/pulse ox: Yes MD prep: mask, sterile gown, sterile gloves, cap Central line prep: 2% Chlorhexidine scrub Local anesthesia used: lidocaine 1% Ultrasound used for placement: Yes Central line lumen inserted: quad, 16 cm Post procedure: sutured in place, good blood return, all ports aspirated, flushed, capped, sterile dressing applied Post procedure x-ray: tip of catheter in good position, no pneumothorax seen Patient tolerated procedure: well, no complications Complications: none
--- NOTE | 2019-12-14 14:07 | XRay Report ---
CLINICAL INFORMATION: Central Line Placement COMPARISON: 12/13/2019 FINDINGS: Right IJ central line tip overlies the SVC /right atrial junction. There is no pneumothorax or other complication from line placement. Moderate cardiomegaly is stable. Mediastinum is unremarkable. Pulmonary vessels have returned to normal in caliber and interstitial edema has resolved. Marked elevation left diaphragm with minor atelectasis left base as before IMPRESSION: Interval resolution CHF. New right IJ line in satisfactory position no competition line placement Interpreted and Authenticated by: Fahad Walden 12/14/19
[2019-12-14] MEDS: VANCOMYCIN 1,500 MG in 0.9 % SODIUM CHLORIDE 500 ML IV SCH (14:35)
[2019-12-14] MEDS: MUPIROCIN OINT 2% 22GM NARES SCH ×2 (14:35→23:48)
[2019-12-14] MEDS: cefTRIAXone 2 GM in DEXTROSE 5% IN WATER 50 ML IV SCH (15:50)
--- NOTE | 2019-12-14 18:45 | Infectious Disease Consult ---
History of Present Illness Patient information: Note initiated : 12/14/19 at 6:32 pm Service Date, if different from initiated Date: [] Patient: Shivam Medley 89 y/o M admitted on 12/13/19 for fever. Chief Complaint: [] Consult date: 12/14/19 Requesting Physician: Dheeraj Hernandez Reason for Consult: GPC bacteremia Chief complaint: I had burning while urinations History of present illness: 89 year old man with PMHx of: - CKD stage IIIb - DM type II - prostate cancer: not on any chemo - hypertension HPI obtained from chart review and pt. Pt was admitted with c/o increasing confusion, fever (as high as 103F). It seems that symptoms started acutely, and pt was doing fine on 12/11. Pt reported that he had burning, increased freq of urination before admission. He denied any pain with BMs, n/v, diarrhea. At admission, it was thought he had CHF and following a dose of Lasix patient became hypotensive and was promptly started on vasopressors for concerns of septic shock with evidence of endorgan dysfunction/leukocytosis. 2 sets of blood Cx were sent. Pt started on IV Vanc and IV Zosyn. Review of Systems All systems PM: reviewed and no additional remarkable complaints except as stated Constitutional: as per HPI Past History Past medical history: prostate cancer diverticulosis cataract surgery Medications and Allergies Home Medications Medication Instructions Recorded Confirmed Type aspirin 81 mg tablet,delayed 81 mg PO QDAY tab 04/09/15 12/13/19 History release calcitriol 0.25 mcg capsule 0.25 mcg PO QDAY cap 04/09/15 12/13/19 History travoprost 0.004 % eye drops 1 drp OU QPM ml 04/09/15 12/14/19 History Acetaminophen [Tylenol] 650 mg PO Q4HP PRN #0 tab 10/26/15 12/13/19 Rx lisinopril 20 mg tablet 25 mg PO QDAY 10/05/16 12/13/19 History ergocalciferol (vitamin D2) 1,000 2,000 unit PO QDAY cap 11/08/18 12/13/19 History unit capsule glipizide 10 mg tablet 10 mg PO BID 11/08/18 12/13/19 History insulin detemir U-100 100 unit/mL 15 unit SUB-Q QDAY ml 11/08/18 12/13/19 History (3 mL) subcutaneous pen magnesium L-lactate 84 mg 168 mg PO BID 11/08/18 12/13/19 History tablet,extended release timolol 0.5 % eye drops 1 drp OU BID 02/15/19 12/14/19 History Tamsulosin [Flomax] 1 tab PO DAILY 12/13/19 12/13/19 History Allergies Allergy/AdvReac Type Severity Reaction Status Date / Time No Known Drug Allergies Allergy Verified 12/13/19 11:28 Physical Examination Vital signs: Temp Pulse Resp BP Pulse Ox 36.6 C 101 H 20 107/52 92 12/14/19 16:02 12/13/19 16:46 12/14/19 17:01 12/14/19 17:01 12/14/19 17:01 General appearance: no acute distress Eyes pulmonary: nonicteric ENT: oropharynx moist Effort: normal Auscultation: bilateral: clear Cardiovascular: regular rate and rhythm Gastrointestinal: normoactive bowel sounds, soft, non-tender Integumentary: normal Extremities: no edema (prostate exam: the anal verge without any lesions, tags, masses. The prostate feel smooth, bilobed, non tender, no fluctuance. I cannot get above the upper border of prostate. No bleeding noted on finger. No other lesions felt in anal canal.) Results - Laboratory Findings CBC and BMP: 12/15/19 05:00 12/15/19 05:00 Abnormal lab findings: Abnormal Labs 12/13/19 12/13/19 12/13/19 11:39 11:39 12:00 WBC 14.5 H RBC 4.21 L Hgb 12.4 L Hct 38.0 L Gran % 90.5 H Lymph % (Auto) 3.5 L Gran # 13.13 H Lymph # (Auto) 0.50 L Seg Neutrophils % Lymphocytes % Sodium 130 L BUN 37 H Creatinine 1.4 H Glucose 269 H Calcium Magnesium Alkaline Phosphatase 128 H Lactate Dehydrogenase Total Protein 8.7 H Albumin Globulin 5.2 H Albumin/Globulin Ratio 0.7 L Urine Protein 30 A Urine Glucose (UA) 50 A Urine Occult Blood 0.03 A Urine RBC 4 H Urine Bacteria Mod A 12/14/19 12/14/19 04:55 04:55 WBC 20.8 H RBC 3.71 L Hgb 10.9 L Hct 33.4 L Gran % Lymph % (Auto) Gran # Lymph # (Auto) Seg Neutrophils % 82 H Lymphocytes % 4 L Sodium BUN 39 H Creatinine 1.7 H Glucose 284 H Calcium 8.5 L Magnesium 1.4 L Alkaline Phosphatase Lactate Dehydrogenase 288 H Total Protein Albumin 2.9 L Globulin 4.4 H Albumin/Globulin Ratio 0.7 L Urine Protein Urine Glucose (UA) Urine Occult Blood Urine RBC Urine Bacteria Microbiology: Microbiology 12/13/19 12:33 Blood Blood Culture - Preliminary Streptococcus dysgalactiae 12/13/19 12:00 Urine - Clean Void Mid-Stream Urine Culture - Preliminary Gram negative bacillus 12/13/19 12:55 Blood Blood Culture - Preliminary Gram positive cocci 12/13/19 16:39 Nose - Both Right and Left MRSA (PCR) - Final MRSA PCR positive Assessment and Plan - Narrative A/P Narrative: A: 1. Streptococcus dysgalactiae bacteremia: 2/2 sets +ve on 12/12 - likely source or GI tract - off vasopressors. Has right IJ central line - physical exam neg for any localized source of infection 2. Hx of prostate cancer: not on any treatment Recommendations: - Stop IV Vanc and IV Zosyn - Start IV Ceftriaxone 2 gm q24 hrs - repeat blood Cx tomorrow - if repeat blood Cx are neg at 48 hrs; will plan for a 10 day course will follow Eugene Nicole MD Infectious diseases
[2019-12-14] MEDS: SENNOSIDES/DOCUSATE SODIUM 1 TAB TABLET PO SCH (21:19)
[2019-12-14] MEDS: 0.9 % SODIUM CHLORIDE 10 ML SYRINGE IV PRN (21:22)
[2019-12-14] MEDS: TIMOLOL 0.5% OPHTH DROPS BOTTLE 5ML OU SCH ×2 (21:30→23:45)
[2019-12-14] MEDS: TRAVOPROST OPHTH DROPS BOTTLE 2.5ML OU SCH ×2 (21:30→23:54)
[2019-12-15] MEDS: 0.9 % SODIUM CHLORIDE 10 ML SYRINGE IV SCH ×6 (05:27→21:37)
[2019-12-15 06:02] LABS: Hematocrit 33.5 % (40.1-51.0); Mean Cell Volume 89.3 fL (80.0-100.0); Mean Corpuscular HGB Conc 32.8 g/dL (31.0-36.0); Mean Platelet Volume 10.3 fL (7.4-10.4); Platelet Count 199 K/mcL (140-440); RBC 3.75 M/mcL (4.63-6.08); Red Cell Distribution Width 13.2 % (11.5-14.5); WBC 15.9 K/mcL (4.50-11.00)
[2019-12-15 06:45] LABS: ALT/SGPT 19 U/l (0-40); AST/SGOT 19 U/l (0-37); Albumin/Globulin Ratio 0.7 (1.0-2.3); Alkaline Phosphatase 108 U/L (39-117); Bilirubin,Direct < 0.2 mg/dL (0.0-0.3); Bilirubin,Total 0.4 mg/dL (0.0-1.0); Blood Urea Nitrogen 43 mg/dl (8-23); Calcium 9.2 mg/dl (8.6-10.4); Carbon Dioxide 27 mmol/L (22-30); Chloride 97 mmol/L (96-108); Globulin 4.5 gm/dL (2.2-3.7); Glomerular Filtration Rate 33; Glucose 119 mg/dL (70-105); Lactate Dehydrogenase 196 U/L (94-250); Phosphorous 3.8 mg/dL (2.7-4.5); Triglycerides 55 mg/dl (<150); Uric Acid 6.5 mg/dL (2.5-8.0)
[2019-12-15] MEDS: MAGNESIUM SULFATE 2 GM/50 ML BAG IV PRN (07:00)
[2019-12-15 07:37] LABS: Band Neutrophils % 3 % (0-10); Lymphocytes % 7 % (15-49); Monocytes % (Manual) 2 % (1-12); Platelet Estimate NORMAL (NORMAL); RBC Morphology NORMAL (NORMAL); Segmented Neutrophils % 88 % (38-78)
[2019-12-15] MEDS: 0.9 % SODIUM CHLORIDE 250 ML IV SCH ×2 (08:13→17:56)
[2019-12-15] MEDS: INSULIN LISPRO 1 UNIT/0.01 ML UNIT SQ SCH ×4 (08:14→21:35)
[2019-12-15] MEDS: DOCUSATE SODIUM 100 MG CAPSULE PO SCH ×2 (08:28→21:34)
[2019-12-15] MEDS: TAMSULOSIN 0.4 MG CAPSULE PO SCH (08:45)
[2019-12-15] MEDS: ASPIRIN 81 MG TAB.CHEW PO SCH (08:45)
[2019-12-15] MEDS: THIAMINE 100 MG TABLET PO SCH (08:45)
[2019-12-15] MEDS: MUPIROCIN OINT 2% 22GM NARES SCH ×2 (08:45→21:34)
[2019-12-15] MEDS: HEPARIN 5,000 UNIT/ML VIAL SQ SCH ×2 (08:45→21:34)
[2019-12-15] MEDS: MULTIVIT,THER IRON,CA,FA & MIN 1 TABLET PO SCH (08:45)
[2019-12-15] MEDS: FUROSEMIDE 40 MG/4 ML VIAL IV SCH ×2 (08:45→16:30)
[2019-12-15] MEDS: INSULIN GLARGINE, HUMAN 1 UNIT/0.01 ML SQ SCH (08:45)
[2019-12-15] MEDS: cefTRIAXone 2 GM in DEXTROSE 5% IN WATER 50 ML IV SCH (08:46)
[2019-12-15] MEDS: NOREPINEPHRINE BITARTRATE 8 MG in 0.9 % SODIUM CHLORIDE 242 ML IV SCH (08:48)
[2019-12-15] MEDS: sitaGLIPtin 50 MG TABLET PO SCH (09:00)
--- NOTE | 2019-12-15 10:02 | XRay Report ---
CLINICAL INFORMATION: Interval Change COMPARISON: 12/14/2019 FINDINGS: Moderate cardiomegaly is unchanged. Mediastinum is normal. Upper lobe pulmonary vessels continue to decrease in caliber but remain mildly distended. No definite edema. Marked elevation left diaphragm with compressive atelectasis in the left lung base again seen. IMPRESSION: Minimal CHF - continued improvement Interpreted and Authenticated by: Fahad Walden 12/15/19
[2019-12-15] MEDS: TIMOLOL 0.5% OPHTH DROPS BOTTLE 5ML OU SCH ×2 (11:45→21:38)
--- NOTE | 2019-12-15 15:01 | Internal Med Progress Note ---
Medical - PN: Subj Patient information: Note initiated : 12/15/19 at 2:57 pm Service Date, if different from initiated Date: [] Patient: Shivam Medley a 89 y/o M admitted on 12/13/19 for fever. Chief Complaint: [] Interval history: Mr. Medley is a 89 year old M with a history of CKD stage IIIb,, DM type II, prostate cancer and hypertension who presents to the ER with increasing confusion/high-grade fever 103. Symptoms started few hours prior to presentation, per family he was doing fine and was able to perform ADLs until yesterday. Symptoms have progressively gotten progressively worse with change in mental status. He has subsequently evaluated at [facility] ER where initial work-up was consistent with congestive heart failure and sepsis. Following a dose of Lasix patient became hypotensive and was promptly started on vasopressors for concerns of septic shock with evidence of endorgan dysfunction/ leukocytosis. Patient remains tachycardic tachypneic and hypotensive. No clear source was identified. Hospitalist service was consulted for admission in light of above. At the time evaluation patient is fatigued lethargic and drowsy and unable to provide detailed history. Most of the history is obtained to review medical records and ER physician. Patient lives at home with his Apur[employer] cuevas who left prior to my visit. Patient denies chest pain, lightheadedness, diarrhea, skin rash, joint pain. He does endorse to fever and chills. 12/13-patient in septic shock. White count 20,800. Cultures negative so far. On vasopressors to keep map at goal. Creatinine 1.7. Ultrasound kidneys today to rule out obstructive uropathy/pyelonephritis. Avoid contrast in light of elevated creatinine. Positive blood culture for gram-positive cocci. Repeat surveillance cultures. Echocardiogram pending. ID consult. Patient remains critically ill 12/14-patient now off vasopressors. White count 15.9. No overnight events. Clinical improvement noted. No fever chills. Creatinine 1.8. Urine culture Klebsiella sensitive to cephalosporin. Streptococcus on blood cultures. Surveillance cultures negative. Continue Rocephin for total of 7 days as per ID recommendations. - Constitutional Vitals: Vital Signs Temp Pulse Resp BP Pulse Ox 98.1 F 101 H 24 H 92/45 95 12/15/19 12:01 12/13/19 16:46 12/15/19 14:00 12/15/19 14:00 12/15/19 14:00 Period Temp Pulse Resp BP Sys/[place] Pulse Ox Last 24 Hr 97.7 F-98.6 F 14-28 83-140/34-93 92-99 Intake and Output 12/15/19 12/15/19 12/15/19 05:59 13:59 21:59 Intake Total 200 700 Output Total 452 300 Balance -252 400 Intake & Output: Intake & Output 12/15/19 12/15/19 12/15/19 05:59 13:59 21:59 Intake Total 200 700 Output Total 452 300 Balance -252 400 Intake: IV 100 Rocephin 2 gm In Dextrose 5% in 50 Water 50 ml @ 100 mls/hr IV DAILY [facility] Rx#:[id number] Oral 200 600 Output: Void Amount 450 300 # of times incontinent of urine 2 Other: Meal Lunch Percent of Meal Consumed 100% Feeding Ability Independent Urine Appearance Clear Clear Clear Urine Color Bright Yellow Bright Yellow Bright Yellow Urine Odor Normal Strong Stool Size Smear Moderate Moderate Stool Color Yellow Brown Brown Green Green Green Stool Consistency Loose Loose Loose # Voids 1 # Bowel Movements 1 General appearance: no acute distress Exam: Alert oriented Nonlabored breathing No anxiety Nondistended abdomen Right IJ line nose evidence of bleeding Medical - PN: Obj Da - Labs CBC & Chem 7: 12/15/19 05:00 12/15/19 05:00 Labs: Abnormal Lab Results 12/15/19 12/15/19 12/14/19 05:00 05:00 04:55 WBC 15.9 H RBC 3.75 L Hgb 11.0 L Hct 33.5 L Gran % Lymph % (Auto) Gran # Lymph # (Auto) Seg Neutrophils % 88 H Lymphocytes % 7 L Sodium BUN 43 H 39 H Creatinine 1.8 H 1.7 H Glucose 119 H 284 H Calcium 8.5 L Magnesium 1.4 L Alkaline Phosphatase Lactate Dehydrogenase 288 H Total Protein Albumin 3.0 L 2.9 L Globulin 4.5 H 4.4 H Albumin/Globulin Ratio 0.7 L 0.7 L Urine Protein Urine Glucose (UA) Urine Occult Blood Urine RBC Urine Bacteria 12/14/19 12/13/19 12/13/19 04:55 12:00 11:39 WBC 20.8 H RBC 3.71 L Hgb 10.9 L Hct 33.4 L Gran % Lymph % (Auto) Gran # Lymph # (Auto) Seg Neutrophils % 82 H Lymphocytes % 4 L Sodium 130 L BUN 37 H Creatinine 1.4 H Glucose 269 H Calcium Magnesium Alkaline Phosphatase 128 H Lactate Dehydrogenase Total Protein 8.7 H Albumin Globulin 5.2 H Albumin/Globulin Ratio 0.7 L Urine Protein 30 A Urine Glucose (UA) 50 A Urine Occult Blood 0.03 A Urine RBC 4 H Urine Bacteria Mod A 12/13/19 11:39 WBC 14.5 H RBC 4.21 L Hgb 12.4 L Hct 38.0 L Gran % 90.5 H Lymph % (Auto) 3.5 L Gran # 13.13 H Lymph # (Auto) 0.50 L Seg Neutrophils % Lymphocytes % Sodium BUN Creatinine Glucose Calcium Magnesium Alkaline Phosphatase Lactate Dehydrogenase Total Protein Albumin Globulin Albumin/Globulin Ratio Urine Protein Urine Glucose (UA) Urine Occult Blood Urine RBC Urine Bacteria Meds: Medications Acetaminophen (Tylenol) 650 mg PO Q4-6HP PRN; Protocol PRN Reason: Per Pain Protocol/Fever > 101 Aspirin (Aspirin) 81 mg PO QDAY [facility] Last Admin: 12/15/19 08:45 Dose: 81 mg Documented by: Bisacodyl (Dulcolax) 10 mg OK Q2-3DAYS PRN PRN Reason: Constipation Dextrose (Dextrose 50%) 0 ml IV UD PRN PRN Reason: Hypoglycemia Diagnostic Test (Pha) (Accu-Chek) 1 each FS ACHS [facility] Last Admin: 12/15/19 12:35 Dose: 1 each Documented by: Docusate Sodium (Colace) 100 mg PO BID [facility] Last Admin: 12/15/19 08:28 Dose: Not Given Documented by: Furosemide (Lasix) 20 mg IV BIDD [facility] Last Admin: 12/15/19 08:45 Dose: 20 mg Documented by: Glucose (Insta-Glucose) 15 gm PO PRN PRN PRN Reason: Hypoglycemia Heparin Sodium (Porcine) (Heparin) 5,000 unit SQ Q12 [facility] Last Admin: 12/15/19 08:45 Dose: 5,000 unit Documented by: Hydralazine HCl (Apresoline) 10 mg IV Q4-6HP PRN PRN Reason: Hypertension Norepinephrine Bitartrate 8 mg (/ Sodium Chloride) 250 mls @ 18.75 mls/hr IV Q14H [facility]; Protocol Last Admin: 12/15/19 08:48 Dose: Not Given Documented by: Acetaminophen (Ofirmev) 650 mg in 65 mls @ 130 mls/hr IV Q6HP PRN; Protocol PRN Reason: Per Pain Protocol/Fever > 101 Magnesium Sulfate (Magnesium Sulfate) 2 gm in 50 mls @ 50 mls/hr IV UD PRN PRN Reason: MG = or < 1.7 Last Infusion: 12/15/19 08:00 Dose: Infused Documented by: Sodium Chloride (Sodium Chloride 0.9%) 250 mls @ 20 mls/hr IV .[id number] [facility] Last Admin: 12/15/19 08:13 Dose: Not Given Documented by: Ceftriaxone Sodium 2 gm/ (Dextrose) 50 mls @ 100 mls/hr IV DAILY [facility]; Protocol Stop: 01/02/20 09:29 Last Infusion: 12/15/19 09:20 Dose: Infused Documented by: Insulin Glargine (Lantus) 15 unit SQ QDAY [facility] Last Admin: 12/15/19 08:45 Dose: 15 unit Documented by: Insulin Human Lispro (Humalog) 0 unit SQ ACHS [facility]; Protocol Last Admin: 12/15/19 12:47 Dose: 4 units Documented by: Iron Carb/Multivit/[place]/Folic Acid (Multivitamin W/Minerals) 1 tab PO DAILY [facility] Last Admin: 12/15/19 08:45 Dose: 1 tab Documented by: Melatonin (Melatonin 3mg Tablet) 3 mg PO HSP PRN PRN Reason: Insomnia Metoprolol Tartrate (Lopressor) 5 mg IV Q5M PRN PRN Reason: Heart Rate > 140 bpm Mupirocin (Bactroban Oint 2%) 1 dose NARES BID [facility] Last Admin: 12/15/19 08:45 Dose: 1 dose Documented by: Ondansetron HCl (Zofran Odt) 4 mg SL Q4-6HP PRN; Protocol PRN Reason: Nausea And Vomiting Ondansetron HCl (Zofran) 4 mg IV Q4-6HP PRN; Protocol PRN Reason: Nausea And Vomiting Polyethylene Glycol (Miralax) 17 gm PO DAILYP PRN PRN Reason: Constipation Potassium Chloride (Klor-Con) 40 meq PO DAILYP PRN PRN Reason: K+ < 3.5 Senna/Docusate Sodium (Senna Plus Tablet) 1 tab PO HS [facility] Last Admin: 12/14/19 21:19 Dose: Not Given Documented by: Sitagliptin Phosphate (Januvia) 50 mg PO DAILY [facility] Last Admin: 12/15/19 09:00 Dose: 50 mg Documented by: Sodium Chloride (Saline Flush) 10 ml IV Q8 [facility] Last Admin: 12/15/19 12:35 Dose: 10 ml Documented by: Sodium Chloride (Saline Flush) 10 ml IV Q12 [facility] Last Admin: 12/15/19 08:48 Dose: 10 ml Documented by: Sodium Chloride (Saline Flush) 10 ml IV UD PRN PRN Reason: before and after meds Last Admin: 12/14/19 21:22 Dose: 10 ml Documented by: Tamsulosin HCl (Flomax) 0.4 mg PO DAILY [facility] Last Admin: 12/15/19 08:45 Dose: 0.4 mg Documented by: Thiamine HCl (Vitamin B1) 100 mg PO DAILY [facility] Last Admin: 12/15/19 08:45 Dose: 100 mg Documented by: Timolol Maleate (Timoptic 0.5% Ophth Drops) 1 gtt OU BID [facility] Last Admin: 12/15/19 11:45 Dose: 1 gtt Documented by: Travoprost (Travatan Z Ophth Drops) 1 gtt OU QPM [facility] Last Admin: 12/14/19 23:54 Dose: 1 gtt Documented by: Medical - PN: A/P - Time Spent With Patient Total time spent is greater than 50% in coordination of care (as documented) at patient's floor/unit and/or counseling patient: 25 - 35 minutes (1) Severe sepsis Status: Acute Assessment and plan: * Septic shock with endorgan dysfunction including altered mental status/SUMAN. Clinically improved. Now off pressors. Continue antibiotic coverage * Streptococcus bacteremia likely secondary to complicated UTI. However clinically improving. Surface cultures negative. On Rocephin for 10 days as per ID * Complicated Klebsiella UTI-improving on antibiotic coverage * Acute on chronic stage IIIb renal failure-secondary to septic shock. Avoid nephrotoxins * Acute decompensated heart failure-echocardiogram. EF 60% * Asymptomatic bacteriuria-sleep followed by Dr. Nicole. Not on prophylaxis. * History of prostate cancer follows up with Dr. Arias. On tamsulosin. * DM type II on basal prandial insulin/held glipizide * History of hypertension-medications on hold in light of shock. * Glaucoma continue travoprost * Full code * Prophylaxis heparin Plan * Antibiotic coverage * PICC line in 48 hours * Continue surveillance blood cultures * Prior medical condition management home meds Current Visit: Yes Medical - PN: Qual - VTE Deep Vein Thrombosis/Pulmonary Embolism Present on Admission: No
--- NOTE | 2019-12-15 18:30 | Infectious Disease Prog Note ---
Subjective Patient information: Note initiated : 12/15/19 at 6:23 pm Service Date, if different from initiated Date: [] Patient: Shivam Medley 89 y/o M admitted on 12/13/19 for fever. Chief Complaint: [] Interval history: Pt doing fine. Denies any symptoms. Still has Right IJ line (for pressors), although off pressors since yesterday. Objective Objective Narrative: ao x 3, in nad chest cta s1 s2 normal bs ++ nttd no edema in legs - Vital Signs Vital signs: Vital Signs Temp Resp BP Pulse Ox 12/15/19 17:09 22 110/70 94 12/15/19 17:06 20 110/70 93 12/15/19 16:00 37.1 C 20 94/51 96 12/15/19 15:24 36.7 C 22 94/51 98 12/15/19 15:21 22 78/46 97 12/15/19 15:20 19 77/45 95 12/15/19 15:18 23 H 72/37 95 12/15/19 15:15 19 69/41 93 12/15/19 15:01 16 75/44 97 12/15/19 14:00 24 H 92/45 95 12/15/19 13:01 24 H 111/59 95 12/15/19 12:01 36.7 C 20 109/93 97 12/15/19 11:01 21 100/55 93 12/15/19 10:14 21 100/56 12/15/19 10:02 25 H 83/34 95 12/15/19 09:23 23 H 90/51 94 12/15/19 08:13 23 H 98/61 98 12/15/19 08:08 36.6 C 24 H 98/61 97 12/15/19 08:00 24 H 97 12/15/19 06:01 19 100/57 93 12/15/19 04:01 37.0 C 24 H 111/59 92 12/15/19 02:01 23 H 125/65 12/15/19 02:00 24 H 12/15/19 01:58 23 H 128/68 12/15/19 00:00 36.8 C 21 109/60 97 12/14/19 23:46 36.7 C 12/14/19 22:01 23 H 115/61 99 12/14/19 21:00 26 H 133/70 98 12/14/19 20:46 22 116/64 99 12/14/19 20:31 19 127/61 97 12/14/19 20:15 36.5 C 20 137/58 97 12/14/19 20:00 28 H 123/54 97 12/14/19 19:51 20 95 12/14/19 19:46 23 H 104/46 95 12/14/19 19:35 26 H 12/14/19 19:33 26 H 107/56 96 12/14/19 19:16 21 140/53 12/14/19 19:01 25 H 99/52 12/14/19 18:46 23 H 114/52 12/14/19 18:35 16 106/58 Intake and Output 12/15/19 12/15/19 12/15/19 05:59 13:59 21:59 Intake Total 200 700 18 Output Total 452 300 Balance -252 400 18 Intake: IV 100 Rocephin 2 gm In Dextrose 5% in 50 Water 50 ml @ 100 mls/hr IV DAILY [facility] Rx#:[id number] Oral 200 600 18 Output: Void Amount 450 300 # of times incontinent of urine 2 Other: Meal Lunch Percent of Meal Consumed 100% Feeding Ability Independent Urine Appearance Clear Clear Clear Urine Color Bright Yellow Bright Yellow Bright Yellow Urine Odor Normal Strong Stool Size Smear Moderate Moderate Stool Color Yellow Brown Brown Green Green Green Stool Consistency Loose Loose Loose # Voids 1 # Bowel Movements 1 Intake & Output: Intake & Output 12/15/19 12/15/19 12/15/19 05:59 13:59 21:59 Intake Total 200 700 18 Output Total 452 300 Balance -252 400 18 Intake: IV 100 Rocephin 2 gm In Dextrose 5% in 50 Water 50 ml @ 100 mls/hr IV DAILY [facility] Rx#:[id number] Oral 200 600 18 Output: Void Amount 450 300 # of times incontinent of urine 2 Other: Meal Lunch Percent of Meal Consumed 100% Feeding Ability Independent Urine Appearance Clear Clear Clear Urine Color Bright Yellow Bright Yellow Bright Yellow Urine Odor Normal Strong Stool Size Smear Moderate Moderate Stool Color Yellow Brown Brown Green Green Green Stool Consistency Loose Loose Loose # Voids 1 # Bowel Movements 1 - Lab 12/15/19 05:00 12/15/19 05:00 Most recent lab results Calcium 9.2 mg/dl (8.6-10.4) 12/15/19 05:00 Phosphorus 3.8 mg/dL (2.7-4.5) 12/15/19 05:00 Magnesium 1.7 mg/dL (1.6-2.5) 12/15/19 05:00 Microbiology 12/13/19 12:33 Blood Blood Culture - Final Streptococcus dysgalactiae 12/14/19 13:02 Blood Blood Culture - Preliminary 12/14/19 12:50 Blood Blood Culture - Preliminary 12/13/19 12:00 Urine - Clean Void Mid-Stream Urine Culture - Final Klebsiella oxytoca 12/14/19 02:48 Stool C. difficile GDH Antigen & Toxins - Final 12/13/19 12:55 Blood Blood Culture - Preliminary Gram positive cocci 12/13/19 16:39 Nose - Both Right and Left MRSA (PCR) - Final MRSA PCR positive Medications Active Medications: Acetaminophen (Tylenol) 650 mg PO Q4-6HP PRN; Protocol PRN Reason: Per Pain Protocol/Fever > 101 Aspirin (Aspirin) 81 mg PO QDAY [facility] Last Admin: 12/15/19 08:45 Dose: 81 mg Documented by: [id number] Bisacodyl (Dulcolax) 10 mg SD Q2-3DAYS PRN PRN Reason: Constipation Dextrose (Dextrose 50%) 0 ml IV UD PRN PRN Reason: Hypoglycemia Diagnostic Test (Pha) (Accu-Chek) 1 each FS ACHS [facility] Last Admin: 12/15/19 17:56 Dose: 1 each Documented by: [email or web address] Admin: 12/15/19 12:35 Dose: 1 each Documented by: [email or web address] Admin: 12/15/19 08:13 Dose: 1 each Documented by: [email or web address] Admin: 12/14/19 21:18 Dose: 1 each Documented by: Admin: 12/14/19 17:24 Dose: 1 each Documented by: [email or web address] Admin: 12/14/19 14:35 Dose: 1 each Documented by: [email or web address] Admin: 12/14/19 08:40 Dose: 1 each Documented by: [email or web address] Admin: 12/13/19 21:38 Dose: 1 each Documented by: Admin: 12/13/19 16:43 Dose: 1 each Documented by: [email or web address] Docusate Sodium (Colace) 100 mg PO BID [facility] Last Admin: 12/15/19 08:28 Dose: Not Given Documented by: [id number] Non-Admin Reason: Loose Stool Admin: 12/14/19 21:19 Dose: Not Given Documented by: [email or web address] Non-Admin Reason: Loose Stool Admin: 12/14/19 08:41 Dose: 100 mg Documented by: [email or web address] Admin: 12/13/19 20:42 Dose: Not Given Documented by: ELMIRA Non-Admin Reason: Patient Refused Furosemide (Lasix) 20 mg IV BIDD [facility] Last Admin: 12/15/19 16:30 Dose: 20 mg Documented by: [id number] Admin: 12/15/19 08:45 Dose: 20 mg Documented by: [email or web address] Admin: 12/14/19 17:24 Dose: 20 mg Documented by: [email or web address] Admin: 12/14/19 08:40 Dose: 20 mg Documented by: [email or web address] Admin: 12/13/19 16:48 Dose: 20 mg Documented by: MICHELLE Glucose (Insta-Glucose) 15 gm PO PRN PRN PRN Reason: Hypoglycemia Heparin Sodium (Porcine) (Heparin) 5,000 unit SQ Q12 [facility] Last Admin: 12/15/19 08:45 Dose: 5,000 unit Documented by: Admin: 12/14/19 21:15 Dose: 5,000 unit Documented by: Admin: 12/14/19 08:41 Dose: 5,000 unit Documented by: [email or web address] Admin: 12/13/19 21:47 Dose: 5,000 unit Documented by: ELMIRA Hydralazine HCl (Apresoline) 10 mg IV Q4-6HP PRN PRN Reason: Hypertension Norepinephrine Bitartrate 8 mg (/ Sodium Chloride) 250 mls @ 18.75 mls/hr IV Q1 4H [facility]; Protocol Last Admin: 12/15/19 08:48 Dose: Not Given Documented by: [id number] Non-Admin Reason: Clinical Judgement Admin: 12/14/19 17:49 Dose: Not Given Documented by: [email or web address] Non-Admin Reason: Clinical Judgement Titration: 12/14/19 12:00 Dose: 0 mcg/min, 0 mls/hr Documented by: Admin: 12/14/19 05:51 Dose: Not Given Documented by: [email or web address] Non-Admin Reason: Bag Still Infusing Titration: 12/13/19 22:50 Dose: 5 mcg/min, 9.375 mls/hr Documented by: [email or web address] Titration: 12/13/19 22:25 Dose: 0 mcg/min, 0 mls/hr Documented by: [email or web address] Titration: 12/13/19 20:45 Dose: 5 mcg/min, 9.375 mls/hr Documented by: [email or web address] Titration: 12/13/19 16:35 Dose: 10 mcg/min, 18.75 mls/hr Documented by: Titration: 12/13/19 16:31 Dose: 0 mcg/min, 0 mls/hr Documented by: Admin: 12/13/19 15:35 Dose: 10 mcg/min, 18.75 mls/hr Documented by: [email or web address] Acetaminophen (Ofirmev) 650 mg in 65 mls @ 130 mls/hr IV Q6HP PRN; Protocol PRN Reason: Per Pain Protocol/Fever > 101 Magnesium Sulfate (Magnesium Sulfate) 2 gm in 50 mls @ 50 mls/hr IV UD PRN PRN Reason: MG = or < 1.7 Last Infusion: 12/15/19 08:00 Dose: 0 mls/hr Documented by: [id number] Admin: 12/15/19 07:00 Dose: 50 mls/hr Documented by: [email or web address] Infusion: 12/14/19 09:50 Dose: 0 mls/hr Documented by: [email or web address] Admin: 12/14/19 08:42 Dose: 50 mls/hr Documented by: AEJorge Luis Sodium Chloride (Sodium Chloride 0.9%) 250 mls @ 20 mls/hr IV .[id number] [facility] Last Admin: 12/15/19 17:56 Dose: Not Given Documented by: [email or web address] Non-Admin Reason: Clinical Judgement Admin: 12/15/19 08:13 Dose: Not Given Documented by: [id number] Non-Admin Reason: Clinical Judgement Admin: 12/14/19 17:49 Dose: Not Given Documented by: [email or web address] Non-Admin Reason: Clinical Judgement Infusion: 12/14/19 12:00 Dose: 0 mls/hr Documented by: [email or web address] Admin: 12/14/19 05:51 Dose: Not Given Documented by: [email or web address] Non-Admin Reason: Bag Still Infusing Admin: 12/13/19 16:46 Dose: 20 mls/hr Documented by: [email or web address] Ceftriaxone Sodium 2 gm/ (Dextrose) 50 mls @ 100 mls/hr IV DAILY [facility]; Protocol Stop: 01/02/20 09:29 Last Infusion: 12/15/19 09:20 Dose: 0 mls/hr Documented by: [email or web address] Admin: 12/15/19 08:46 Dose: 100 mls/hr Documented by: Infusion: 12/14/19 16:30 Dose: 0 mls/hr Documented by: AEJorge Luis Admin: 12/14/19 15:50 Dose: 100 mls/hr Documented by: AEJorge Luis Insulin Glargine (Lantus) 15 unit SQ QDAY [facility] Last Admin: 12/15/19 08:45 Dose: 15 unit Documented by: MICHELLE Insulin Human Lispro (Humalog) 0 unit SQ ACHS [facility]; Protocol Last Admin: 12/15/19 17:56 Dose: Not Given Documented by: MICHELLE Non-Admin Reason: No Coverage Needed Admin: 12/15/19 12:47 Dose: 4 units Documented by: Admin: 12/15/19 08:14 Dose: Not Given Documented by: [id number] Non-Admin Reason: No Coverage Needed Admin: 12/14/19 21:22 Dose: 4 units Documented by: Admin: 12/14/19 17:25 Dose: Not Given Documented by: AEJorge Luis Non-Admin Reason: no coverage required Admin: 12/14/19 14:58 Dose: 2 units Documented by: AEJorge Luis Admin: 12/14/19 08:40 Dose: 3 units Documented by: AEJorge Luis Admin: 12/13/19 21:38 Dose: Not Given Documented by: ELMIRA Non-Admin Reason: No Coverage Needed Admin: 12/13/19 16:43 Dose: Not Given Documented by: [id number] Non-Admin Reason: No Coverage Needed Iron Carb/Multivit/[place]/Folic Acid (Multivitamin W/Minerals) 1 tab PO DAILY [facility] Last Admin: 12/15/19 08:45 Dose: 1 tab Documented by: [email or web address] Admin: 12/14/19 08:41 Dose: 1 tab Documented by: AEJorge Luis Melatonin (Melatonin 3mg Tablet) 3 mg PO HSP PRN PRN Reason: Insomnia Metoprolol Tartrate (Lopressor) 5 mg IV Q5M PRN PRN Reason: Heart Rate > 140 bpm Mupirocin (Bactroban Oint 2%) 1 dose NARES BID [facility] Admin: 12/15/19 08:45 Dose: 1 dose Documented by: Admin: 12/14/19 23:48 Dose: 1 dose Documented by: Admin: 12/14/19 14:35 Dose: 1 dose Documented by: AEJorge Luis Ondansetron HCl (Zofran Odt) 4 mg SL Q4-6HP PRN; Protocol PRN Reason: Nausea And Vomiting Ondansetron HCl (Zofran) 4 mg IV Q4-6HP PRN; Protocol PRN Reason: Nausea And Vomiting Polyethylene Glycol (Miralax) 17 gm PO DAILYP PRN PRN Reason: Constipation Potassium Chloride (Klor-Con) 40 meq PO DAILYP PRN PRN Reason: K+ < 3.5 Senna/Docusate Sodium (Senna Plus Tablet) 1 tab PO HS [facility] Admin: 12/14/19 21:19 Dose: Not Given Documented by: BRITTA Non-Admin Reason: Loose Stool Admin: 12/13/19 20:42 Dose: Not Given Documented by: ELMIRA Non-Admin Reason: Patient Refused Sitagliptin Phosphate (Januvia) 50 mg PO DAILY [facility] Admin: 12/15/19 09:00 Dose: 50 mg Documented by: Admin: 12/14/19 08:41 Dose: 50 mg Documented by: RADHA Sodium Chloride (Saline Flush) 10 ml IV Q8 [facility] Admin: 12/15/19 12:35 Dose: 10 ml Documented by: Admin: 12/15/19 05:28 Dose: 10 ml Documented by: Admin: 12/15/19 05:27 Dose: 10 ml Documented by: Admin: 12/15/19 05:27 Dose: 10 ml Documented by: Admin: 12/14/19 23:48 Dose: 10 ml Documented by: Admin: 12/14/19 14:36 Dose: 10 ml Documented by: AEJorge Luis Admin: 12/14/19 05:51 Dose: 10 ml Documented by: Admin: 12/13/19 21:39 Dose: 10 ml Documented by: Admin: 12/13/19 16:44 Dose: 10 ml Documented by: MICHELLE Sodium Chloride (Saline Flush) 10 ml IV Q12 [facility] Last Admin: 12/15/19 08:48 Dose: 10 ml Documented by: [email or web address] Admin: 12/14/19 21:22 Dose: 10 ml Documented by: BRITTA Sodium Chloride (Saline Flush) 10 ml IV UD PRN PRN Reason: before and after meds Last Admin: 12/14/19 21:22 Dose: 10 ml Documented by: [email or web address] Tamsulosin HCl (Flomax) 0.4 mg PO DAILY [facility] Last Admin: 12/15/19 08:45 Dose: 0.4 mg Documented by: MICHELLE Thiamine HCl (Vitamin B1) 100 mg PO DAILY [facility] Last Admin: 12/15/19 08:45 Dose: 100 mg Documented by: [email or web address] Admin: 12/14/19 08:41 Dose: 100 mg Documented by: [email or web address] Timolol Maleate (Timoptic 0.5% Ophth Drops) 1 gtt OU BID [facility] Last Admin: 12/15/19 11:45 Dose: 1 gtt Documented by: [email or web address] Admin: 12/14/19 23:45 Dose: 1 gtt Documented by: BRITTA Comments: Pt. family member aiden in medications Admin: 12/14/19 21:30 Dose: Not Given Documented by: [email or web address] Non-Admin Reason: Unavailable Travoprost (Travatan Z Ophth Drops) 1 gtt OU QPM [facility] Last Admin: 12/14/19 23:54 Dose: 1 gtt Documented by: [email or web address] Comments: Pt. family member brought in medication. Admin: 12/14/19 21:30 Dose: Not Given Documented by: [email or web address] Non-Admin Reason: Unavailable Assessment and Plan - Narrative A/P Narrative: A: 1. Streptococcus dysgalactiae bacteremia: 2/2 sets +ve on 12/12 - likely source or GI tract - off vasopressors since 12/13 - physical exam neg for any localized source of infection - TTE neg for any endocarditis. overall uncomplicated bacteremia 2. Hx of prostate cancer: not on any treatment Recommendations: - Continue IV Ceftriaxone 2 gm q24 hrs - Rt IJ central line likely to come out tomorrow. Repeat blood Cx tomorrow. If negative for 48 hrs, a midline can be placed after that and pt could be discharged to finish a 7-day course afterwards - given his last f/u with Dr Belle (Urology) was in 07/2019, will recommend f/u for evaluation for any treatment for prostate cancer Eugene Nicole MD Infectious diseases
[2019-12-15] MEDS: 0.9 % SODIUM CHLORIDE 10 ML SYRINGE IV PRN (21:37)
[2019-12-15] MEDS: SENNOSIDES/DOCUSATE SODIUM 1 TAB TABLET PO SCH (21:37)
[2019-12-15] MEDS: TRAVOPROST OPHTH DROPS BOTTLE 2.5ML OU SCH (21:38)
[2019-12-16] MEDS: NOREPINEPHRINE BITARTRATE 8 MG in 0.9 % SODIUM CHLORIDE 242 ML IV SCH ×2 (04:06→11:48)
[2019-12-16] MEDS: 0.9 % SODIUM CHLORIDE 10 ML SYRINGE IV SCH ×5 (05:46→22:02)
[2019-12-16 06:51] LABS: Hematocrit 32.7 % (40.1-51.0); Hemoglobin 10.4 g/dL (13.7-17.5); Mean Cell Volume 90.6 fL (80.0-100.0); Mean Corpuscular HGB Conc 31.8 g/dL (31.0-36.0); Mean Platelet Volume 10.3 fL (7.4-10.4); Platelet Count 196 K/mcL (140-440); RBC 3.61 M/mcL (4.63-6.08); Red Cell Distribution Width 13.4 % (11.5-14.5); WBC 8.4 K/mcL (4.50-11.00)
[2019-12-16] MEDS: 0.9 % SODIUM CHLORIDE 250 ML IV SCH ×2 (07:35→20:11)
[2019-12-16 07:42] LABS: ALT/SGPT 15 U/l (0-40); AST/SGOT 17 U/l (0-37); Albumin 2.8 gm/dL (3.2-5.2); Albumin/Globulin Ratio 0.6 (1.0-2.3); Alkaline Phosphatase 107 U/L (39-117); Bilirubin,Direct < 0.2 mg/dL (0.0-0.3); Bilirubin,Total 0.3 mg/dL (0.0-1.0); Blood Urea Nitrogen 50 mg/dl (8-23); Calcium 8.7 mg/dl (8.6-10.4); Carbon Dioxide 27 mmol/L (22-30); Chloride 97 mmol/L (96-108); Globulin 4.5 gm/dL (2.2-3.7); Glomerular Filtration Rate 29; Glucose 129 mg/dL (70-105); Lactate Dehydrogenase 206 U/L (94-250); Phosphorous 5.1 mg/dL (2.7-4.5); Triglycerides 66 mg/dl (<150); Uric Acid 7.7 mg/dL (2.5-8.0)
[2019-12-16] MEDS: INSULIN LISPRO 1 UNIT/0.01 ML UNIT SQ SCH ×4 (07:52→21:45)
[2019-12-16 08:13] LABS: Eosinophils % (Manual) 5 % (0-7); Lymphocytes % 10 % (15-49); Monocytes % (Manual) 3 % (1-12); Platelet Estimate NORMAL (NORMAL); RBC Morphology NORMAL (NORMAL); Segmented Neutrophils % 82 % (38-78)
[2019-12-16] MEDS: TIMOLOL 0.5% OPHTH DROPS BOTTLE 5ML OU SCH ×2 (09:18→21:39)
[2019-12-16] MEDS: MULTIVIT,THER IRON,CA,FA & MIN 1 TABLET PO SCH (09:19)
[2019-12-16] MEDS: TAMSULOSIN 0.4 MG CAPSULE PO SCH (09:19)
[2019-12-16] MEDS: ASPIRIN 81 MG TAB.CHEW PO SCH (09:19)
[2019-12-16] MEDS: THIAMINE 100 MG TABLET PO SCH (09:19)
[2019-12-16] MEDS: INSULIN GLARGINE, HUMAN 1 UNIT/0.01 ML SQ SCH (09:19)
[2019-12-16] MEDS: cefTRIAXone 2 GM in DEXTROSE 5% IN WATER 50 ML IV SCH (09:19)
[2019-12-16] MEDS: MUPIROCIN OINT 2% 22GM NARES SCH ×2 (09:19→21:45)
[2019-12-16] MEDS: FUROSEMIDE 40 MG/4 ML VIAL IV SCH ×2 (09:19→17:00)
[2019-12-16] MEDS: HEPARIN 5,000 UNIT/ML VIAL SQ SCH ×2 (09:20→21:39)
[2019-12-16] MEDS: DOCUSATE SODIUM 100 MG CAPSULE PO SCH ×2 (09:20→21:40)
[2019-12-16] MEDS: sitaGLIPtin 50 MG TABLET PO SCH (09:23)
--- NOTE | 2019-12-16 20:44 | Internal Med Progress Note ---
Medical - PN: Subj Patient information: Note initiated : 12/16/19 at 8:44 pm Service Date, if different from initiated Date: [] Patient: Shivam Medley a 89 y/o M admitted on 12/13/19 for fever. Chief Complaint: [] Interval history: Mr. Medley is a 89 year old M with a history of CKD stage IIIb,, DM type II, prostate cancer and hypertension who presents to the ER with increasing confusion/high-grade fever 103. Symptoms started few hours prior to presentation, per family he was doing fine and was able to perform ADLs until yesterday. Symptoms have progressively gotten progressively worse with change in mental status. He has subsequently evaluated at [facility] ER where initial work-up was consistent with congestive heart failure and sepsis. Following a dose of Lasix patient became hypotensive and was promptly started on vasopressors for concerns of septic shock with evidence of endorgan dysfunction/ leukocytosis. Patient remains tachycardic tachypneic and hypotensive. No clear source was identified. Hospitalist service was consulted for admission in light of above. At the time evaluation patient is fatigued lethargic and drowsy and unable to provide detailed history. Most of the history is obtained to review medical records and ER physician. Patient lives at home with his Apurva cuevas who left prior to my visit. Patient denies chest pain, lightheadedness, diarrhea, skin rash, joint pain. He does endorse to fever and chills. 12/13-patient in septic shock. White count 20,800. Cultures negative so far. On vasopressors to keep map at goal. Creatinine 1.7. Ultrasound kidneys today to rule out obstructive uropathy/pyelonephritis. Avoid contrast in light of elevated creatinine. Positive blood culture for gram-positive cocci. Repeat surveillance cultures. Echocardiogram pending. ID consult. Patient remains critically ill 12/14-patient now off vasopressors. White count 15.9. No overnight events. Clinical improvement noted. No fever chills. Creatinine 1.8. Urine culture Klebsiella sensitive to cephalosporin. Streptococcus on blood cultures. Surveillance cultures negative. Continue Rocephin for total of 7 days as per ID recommendations. 12/15-patient doing well. Off vasopressors. White count 8.4. Hemodynamic stable. Worsening renal function creatinine 2. Continue close monitoring. Avoid nephrotoxins. Continue PT OT nutrition support. Transfer to medical floor if remains stable. - Constitutional Vitals: Vital Signs Temp Pulse Resp BP Pulse Ox 97.7 F 71 28 H 119/59 100 12/16/19 16:00 12/16/19 08:32 12/16/19 19:40 12/16/19 20:01 12/16/19 20:01 Period Temp Pulse Resp BP Sys/Ayers Pulse Ox Last 24 Hr 97.5 F-97.7 F 69-77 16-28 87-120/46-66 91-100 Intake and Output 12/16/19 12/16/19 12/16/19 05:59 13:59 21:59 Intake Total 600 600 Output Total 400 400 Balance -400 600 200 Weight 203 lb 11.2 oz Patient Weight 12/17/19 05:59 Weight 203 lb 11.2 oz Intake & Output: Intake & Output 12/16/19 12/16/19 12/16/19 05:59 13:59 21:59 Intake Total 600 600 Output Total 400 400 Balance -400 600 200 Weight 203 lb 11.2 oz Intake: Oral 600 600 Output: Void Amount 150 400 Stool 250 Other: Meal Lunch Dinner Percent of Meal Consumed 100% 100% Feeding Ability Independent Independent Urine Appearance Clear Clear Mucous Threads Mucous Threads Urine Color Bright Yellow Bright Yellow Bright Yellow Urine Odor Strong Normal # Voids 1 General appearance: no acute distress Exam: Alert oriented Nonlabored breathing No anxiety Nondistended abdomen Medical - PN: Obj Da - Labs CBC & Chem 7: 12/17/19 05:00 12/17/19 05:00 Labs: Abnormal Lab Results 12/16/19 12/16/19 12/15/19 05:10 05:10 05:00 WBC RBC 3.61 L Hgb 10.4 L Hct 32.7 L Seg Neutrophils % 82 H Lymphocytes % 10 L BUN 50 H 43 H Creatinine 2.0 H 1.8 H Glucose 129 H 119 H Calcium Phosphorus 5.1 H Magnesium Lactate Dehydrogenase Albumin 2.8 L 3.0 L Globulin 4.5 H 4.5 H Albumin/Globulin Ratio 0.6 L 0.7 L 12/15/19 12/14/19 12/14/19 05:00 04:55 04:55 WBC 15.9 H 20.8 H RBC 3.75 L 3.71 L Hgb 11.0 L 10.9 L Hct 33.5 L 33.4 L Seg Neutrophils % 88 H 82 H Lymphocytes % 7 L 4 L BUN 39 H Creatinine 1.7 H Glucose 284 H Calcium 8.5 L Phosphorus Magnesium 1.4 L Lactate Dehydrogenase 288 H Albumin 2.9 L Globulin 4.4 H Albumin/Globulin Ratio 0.7 L Meds: Medications Acetaminophen (Tylenol) 650 mg PO Q4-6HP PRN; Protocol PRN Reason: Per Pain Protocol/Fever > 101 Aspirin (Aspirin) 81 mg PO QDAY [facility] Last Admin: 12/16/19 09:19 Dose: 81 mg Documented by: Bisacodyl (Dulcolax) 10 mg [place] Q2-3DAYS PRN PRN Reason: Constipation Dextrose (Dextrose 50%) 0 ml IV UD PRN PRN Reason: Hypoglycemia Diagnostic Test (Pha) (Accu-Chek) 1 each FS ACHS [facility] Last Admin: 12/16/19 16:57 Dose: 1 each Documented by: Docusate Sodium (Colace) 100 mg PO BID [facility] Last Admin: 12/16/19 09:20 Dose: Not Given Documented by: Furosemide (Lasix) 20 mg IV BIDD [facility] Last Admin: 12/16/19 17:00 Dose: 20 mg Documented by: Glucose (Insta-Glucose) 15 gm PO PRN PRN PRN Reason: Hypoglycemia Heparin Sodium (Porcine) (Heparin) 5,000 unit SQ Q12 [facility] Last Admin: 12/16/19 09:20 Dose: 5,000 unit Documented by: Hydralazine HCl (Apresoline) 10 mg IV Q4-6HP PRN PRN Reason: Hypertension Norepinephrine Bitartrate 8 mg (/ Sodium Chloride) 250 mls @ 18.75 mls/hr IV Q14H [facility]; Protocol Last Admin: 12/16/19 11:48 Dose: Not Given Documented by: Acetaminophen (Ofirmev) 650 mg in 65 mls @ 130 mls/hr IV Q6HP PRN; Protocol PRN Reason: Per Pain Protocol/Fever > 101 Magnesium Sulfate (Magnesium Sulfate) 2 gm in 50 mls @ 50 mls/hr IV UD PRN PRN Reason: MG = or < 1.7 Last Infusion: 12/15/19 08:00 Dose: Infused Documented by: Sodium Chloride (Sodium Chloride 0.9%) 250 mls @ 20 mls/hr IV .[id number] [facility] Last Admin: 12/16/19 20:11 Dose: Not Given Documented by: Ceftriaxone Sodium 2 gm/ (Dextrose) 50 mls @ 100 mls/hr IV DAILY [facility]; Protocol Stop: 01/02/20 09:29 Last Admin: 12/16/19 09:19 Dose: 100 mls/hr Documented by: Insulin Glargine (Lantus) 15 unit SQ QDAY [facility] Last Admin: 12/16/19 09:19 Dose: 15 unit Documented by: Insulin Human Lispro (Humalog) 0 unit SQ ACHS [facility]; Protocol Last Admin: 12/16/19 16:57 Dose: Not Given Documented by: Iron Carb/Multivit/[employer] Associate/Folic Acid (Multivitamin W/Minerals) 1 tab PO DAILY [facility] Last Admin: 12/16/19 09:19 Dose: 1 tab Documented by: Melatonin (Melatonin 3mg Tablet) 3 mg PO HSP PRN PRN Reason: Insomnia Metoprolol Tartrate (Lopressor) 5 mg IV Q5M PRN PRN Reason: Heart Rate > 140 bpm Mupirocin (Bactroban Oint 2%) 1 dose NARES BID [facility] Last Admin: 12/16/19 09:19 Dose: 1 dose Documented by: Ondansetron HCl (Zofran Odt) 4 mg SL Q4-6HP PRN; Protocol PRN Reason: Nausea And Vomiting Ondansetron HCl (Zofran) 4 mg IV Q4-6HP PRN; Protocol PRN Reason: Nausea And Vomiting Polyethylene Glycol (Miralax) 17 gm PO DAILYP PRN PRN Reason: Constipation Potassium Chloride (Klor-Con) 40 meq PO DAILYP PRN PRN Reason: K+ < 3.5 Last Admin: 12/16/19 09:49 Dose: 40 meq Documented by: Senna/Docusate Sodium (Senna Plus Tablet) 1 tab PO HS [facility] Last Admin: 12/15/19 21:37 Dose: Not Given Documented by: Sitagliptin Phosphate (Januvia) 50 mg PO DAILY [facility] Last Admin: 12/16/19 09:23 Dose: 50 mg Documented by: Sodium Chloride (Saline Flush) 10 ml IV Q8 [facility] Last Admin: 12/16/19 13:47 Dose: 10 ml Documented by: Sodium Chloride (Saline Flush) 10 ml IV Q12 [facility] Last Admin: 12/16/19 09:25 Dose: 10 ml Documented by: Sodium Chloride (Saline Flush) 10 ml IV UD PRN PRN Reason: before and after meds Last Admin: 12/15/19 21:37 Dose: 10 ml Documented by: Tamsulosin HCl (Flomax) 0.4 mg PO DAILY [facility] Last Admin: 12/16/19 09:19 Dose: 0.4 mg Documented by: Thiamine HCl (Vitamin B1) 100 mg PO DAILY [facility] Last Admin: 12/16/19 09:19 Dose: 100 mg Documented by: Timolol Maleate (Timoptic 0.5% Ophth Drops) 1 gtt OU BID [facility] Last Admin: 12/16/19 09:18 Dose: 1 gtt Documented by: Travoprost (Travatan Z Ophth Drops) 1 gtt OU QPM [facility] Last Admin: 12/15/19 21:38 Dose: 1 gtt Documented by: Medical - PN: A/P - Time Spent With Patient Total time spent is greater than 50% in coordination of care (as documented) at patient's floor/unit and/or counseling patient: 25 - 35 minutes (1) Severe sepsis Status: Acute Assessment and plan: * Septic shock with endorgan dysfunction including altered mental status/SUMAN. Off pressors, resolved. White count normalized. Improving endorgan dysfunction * Streptococcus bacteremia likely secondary to complicated UTI. Clinically improved. Continue Rocephin for 10 days * Complicated Klebsiella UTI-clinically improved on antibiotic coverage. * Acute on chronic stage IIIb renal failure-creatinine up to 2 from 1.5 baselin e. Continue close monitoring * Acute decompensated heart failure-currently well compensated. Echocardiogram EF 60% * History of prostate cancer follows up with Dr. Arias. On tamsulosin. * DM type II on basal prandial insulin/held glipizide * History of hypertension-hold RACHELLE inhibitor until renal function improves and systolics of 140 * Glaucoma continue travoprost * Full code * Prophylaxis heparin Plan * Antibiotic coverage * DC central line and start PICC line * Continue surveillance blood cultures * Prior medical condition management home meds Current Visit: Yes Medical - PN: Qual - VTE Deep Vein Thrombosis/Pulmonary Embolism Present on Admission: No
[2019-12-16] MEDS: TRAVOPROST OPHTH DROPS BOTTLE 2.5ML OU SCH (21:39)
[2019-12-16] MEDS: SENNOSIDES/DOCUSATE SODIUM 1 TAB TABLET PO SCH (21:40)
[2019-12-16] MEDS: 0.9 % SODIUM CHLORIDE 10 ML SYRINGE IV PRN (22:02)
[2019-12-17] MEDS: NOREPINEPHRINE BITARTRATE 8 MG in 0.9 % SODIUM CHLORIDE 242 ML IV SCH (03:06)
[2019-12-17] MEDS: 0.9 % SODIUM CHLORIDE 10 ML SYRINGE IV PRN (06:22)
[2019-12-17] MEDS: 0.9 % SODIUM CHLORIDE 10 ML SYRINGE IV SCH ×7 (06:22→21:58)
[2019-12-17 07:20] LABS: Hematocrit 34.2 % (40.1-51.0); Mean Cell Volume 90.5 fL (80.0-100.0); Mean Corpuscular HGB Conc 32.2 g/dL (31.0-36.0); Mean Platelet Volume 10.4 fL (7.4-10.4); Platelet Count 213 K/mcL (140-440); RBC 3.78 M/mcL (4.63-6.08); Red Cell Distribution Width 13.2 % (11.5-14.5); WBC 6.4 K/mcL (4.50-11.00)
[2019-12-17 07:45] LABS: ALT/SGPT 15 U/l (0-40); AST/SGOT 18 U/l (0-37); Albumin 3.2 gm/dL (3.2-5.2); Albumin/Globulin Ratio 0.7 (1.0-2.3); Alkaline Phosphatase 113 U/L (39-117); Bilirubin,Direct < 0.2 mg/dL (0.0-0.3); Bilirubin,Total 0.3 mg/dL (0.0-1.0); Blood Urea Nitrogen 52 mg/dl (8-23); Calcium 9.1 mg/dl (8.6-10.4); Carbon Dioxide 26 mmol/L (22-30); Chloride 99 mmol/L (96-108); Globulin 4.7 gm/dL (2.2-3.7); Glomerular Filtration Rate 33; Glucose 70 mg/dL (70-105); Lactate Dehydrogenase 235 U/L (94-250); Triglycerides 68 mg/dl (<150); Uric Acid 8.5 mg/dL (2.5-8.0)
[2019-12-17 07:46] LABS: Phosphorous 3.9 mg/dL (2.7-4.5)
[2019-12-17] MEDS ORDERED: NOREPINEPHRINE BITARTRATE 8 MG in 0.9 % SODIUM CHLORIDE 242 ML IV PRN ×2 (08:11→10:17)
[2019-12-17] MEDS: INSULIN LISPRO 1 UNIT/0.01 ML UNIT SQ SCH ×4 (08:23→21:56)
[2019-12-17 08:30] LABS: Band Neutrophils % 1 % (0-10); Eosinophils % (Manual) 10 % (0-7); Lymphocytes % 10 % (15-49); Monocytes % (Manual) 5 % (1-12); Platelet Estimate NORMAL (NORMAL); RBC Morphology NORMAL (NORMAL); Segmented Neutrophils % 74 % (38-78)
[2019-12-17] MEDS: TIMOLOL 0.5% OPHTH DROPS BOTTLE 5ML OU SCH ×2 (09:23→21:58)
[2019-12-17] MEDS: cefTRIAXone 2 GM in DEXTROSE 5% IN WATER 50 ML IV SCH (09:23)
[2019-12-17] MEDS: MULTIVIT,THER IRON,CA,FA & MIN 1 TABLET PO SCH (09:23)
[2019-12-17] MEDS: MUPIROCIN OINT 2% 22GM NARES SCH ×2 (09:23→21:57)
[2019-12-17] MEDS: THIAMINE 100 MG TABLET PO SCH (09:24)
[2019-12-17] MEDS: TAMSULOSIN 0.4 MG CAPSULE PO SCH (09:24)
[2019-12-17] MEDS: ASPIRIN 81 MG TAB.CHEW PO SCH (09:24)
[2019-12-17] MEDS: DOCUSATE SODIUM 100 MG CAPSULE PO SCH ×2 (09:24→21:57)
[2019-12-17] MEDS: INSULIN GLARGINE, HUMAN 1 UNIT/0.01 ML SQ SCH (09:24)
[2019-12-17] MEDS: HEPARIN 5,000 UNIT/ML VIAL SQ SCH ×2 (09:24→21:56)
[2019-12-17] MEDS: FUROSEMIDE 40 MG/4 ML VIAL IV SCH ×2 (09:24→16:38)
[2019-12-17] MEDS: sitaGLIPtin 50 MG TABLET PO SCH (09:27)
--- NOTE | 2019-12-17 10:02 | Internal Med Progress Note ---
Medical - PN: Subj Patient information: Note initiated : 12/17/19 at 9:59 am Service Date, if different from initiated Date: [] Patient: Shivam Medley a 89 y/o M admitted on 12/13/19 for fever. Chief Complaint: [] Interval history: Mr. Medley is a 89 year old M with a history of CKD stage IIIb,, DM type II, prostate cancer and hypertension who presents to the ER with increasing confusion/high-grade fever 103. Symptoms started few hours prior to presentation, per family he was doing fine and was able to perform ADLs until yesterday. Symptoms have progressively gotten progressively worse with change in mental status. He has subsequently evaluated at [facility] ER where initial work-up was consistent with congestive heart failure and sepsis. Following a dose of Lasix patient became hypotensive and was promptly started on vasopressors for concerns of septic shock with evidence of endorgan dysfunction/ leukocytosis. Patient remains tachycardic tachypneic and hypotensive. No clear source was identified. Hospitalist service was consulted for admission in light of above. At the time evaluation patient is fatigued lethargic and drowsy and unable to provide detailed history. Most of the history is obtained to review medical records and ER physician. Patient lives at home with his Apurva cuevas who left prior to my visit. Patient denies chest pain, lightheadedness, diarrhea, skin rash, joint pain. He does endorse to fever and chills. 12/13-patient in septic shock. White count 20,800. Cultures negative so far. On vasopressors to keep map at goal. Creatinine 1.7. Ultrasound kidneys today to rule out obstructive uropathy/pyelonephritis. Avoid contrast in light of elevated creatinine. Positive blood culture for gram-positive cocci. Repeat surveillance cultures. Echocardiogram pending. ID consult. Patient remains critically ill 12/14-patient now off vasopressors. White count 15.9. No overnight events. Clinical improvement noted. No fever chills. Creatinine 1.8. Urine culture Klebsiella sensitive to cephalosporin. Streptococcus on blood cultures. Surveillance cultures negative. Continue Rocephin for total of 7 days as per ID recommendations. 12/15-patient doing well. Off vasopressors. White count 8.4. Hemodynamic stable. Worsening renal function creatinine 2. Continue close monitoring. Avoid nephrotoxins. Continue PT OT nutrition support. Transfer to medical floor if remains stable. 12/16-no pressors. White count down to 6000. Central line discontinued. No overnight fever chills. Transfer to medical floor. Creatinine improving down to 1.8. No overnight fever chills. - Constitutional Vitals: Vital Signs Temp Pulse Resp BP Pulse Ox 97.9 F 73 24 H 114/57 95 12/17/19 04:00 12/17/19 04:00 12/17/19 04:00 12/17/19 06:01 12/17/19 06:01 Period Temp Pulse Resp BP Sys/Ayers Pulse Ox Last 24 Hr 97.6 F-98.3 F 65-74 16-28 92-120/46-59 91-100 Intake and Output 12/16/19 12/17/19 12/17/19 21:59 05:59 13:59 Intake Total 600 240 Output Total 400 525 Balance 200 -285 Weight 203 lb 11.2 oz Intake & Output: Intake & Output 12/16/19 12/17/19 12/17/19 21:59 05:59 13:59 Intake Total 600 240 Output Total 400 525 Balance 200 -285 Weight 203 lb 11.2 oz Intake: Oral 600 240 Output: Void Amount 400 350 Urine/Stool Mix 100 Stool 75 Other: Meal Dinner Percent of Meal Consumed 100% Feeding Ability Independent Urine Appearance Mucous Threads Clear Urine Color Bright Yellow Bright Yellow Urine Odor Normal Stool Consistency Liquid # Voids 1 1 General appearance: no acute distress Exam: Alert oriented No telemetry events Nonlabored breathing No anxiety Medical - PN: Obj Da - Labs CBC & Chem 7: 12/17/19 05:00 12/17/19 05:00 Labs: Abnormal Lab Results 12/17/19 12/17/19 12/16/19 05:00 05:00 05:10 WBC RBC 3.78 L Hgb 11.0 L Hct 34.2 L Seg Neutrophils % Lymphocytes % 10 L Eosinophils % (Manual) 10 H BUN 52 H 50 H Creatinine 1.8 H 2.0 H Glucose 129 H Uric Acid 8.5 H Phosphorus 5.1 H Albumin 2.8 L Globulin 4.7 H 4.5 H Albumin/Globulin Ratio 0.7 L 0.6 L 12/16/19 12/15/19 12/15/19 05:10 05:00 05:00 WBC 15.9 H RBC 3.61 L 3.75 L Hgb 10.4 L 11.0 L Hct 32.7 L 33.5 L Seg Neutrophils % 82 H 88 H Lymphocytes % 10 L 7 L Eosinophils % (Manual) BUN 43 H Creatinine 1.8 H Glucose 119 H Uric Acid Phosphorus Albumin 3.0 L Globulin 4.5 H Albumin/Globulin Ratio 0.7 L Meds: Medications Acetaminophen (Tylenol) 650 mg PO Q4-6HP PRN; Protocol PRN Reason: Per Pain Protocol/Fever > 101 Aspirin (Aspirin) 81 mg PO QDAY [facility] Last Admin: 12/17/19 09:24 Dose: 81 mg Documented by: Bisacodyl (Dulcolax) 10 mg [place] Q2-3DAYS PRN PRN Reason: Constipation Dextrose (Dextrose 50%) 0 ml IV UD PRN PRN Reason: Hypoglycemia Diagnostic Test (Pha) (Accu-Chek) 1 each FS ACHS [facility] Last Admin: 12/17/19 08:22 Dose: 1 each Documented by: Docusate Sodium (Colace) 100 mg PO BID [facility] Last Admin: 12/17/19 09:24 Dose: Not Given Documented by: Furosemide (Lasix) 20 mg IV BIDD [facility] Last Admin: 12/17/19 09:24 Dose: 20 mg Documented by: Glucose (Insta-Glucose) 15 gm PO PRN PRN PRN Reason: Hypoglycemia Heparin Sodium (Porcine) (Heparin) 5,000 unit SQ Q12 [facility] Last Admin: 12/17/19 09:24 Dose: 5,000 unit Documented by: Hydralazine HCl (Apresoline) 10 mg IV Q4-6HP PRN PRN Reason: Hypertension Acetaminophen (Ofirmev) 650 mg in 65 mls @ 130 mls/hr IV Q6HP PRN; Protocol PRN Reason: Per Pain Protocol/Fever > 101 Magnesium Sulfate (Magnesium Sulfate) 2 gm in 50 mls @ 50 mls/hr IV UD PRN PRN Reason: MG = or < 1.7 Last Infusion: 12/15/19 08:00 Dose: Infused Documented by: Ceftriaxone Sodium 2 gm/ (Dextrose) 50 mls @ 100 mls/hr IV DAILY [facility]; Protocol Stop: 01/02/20 09:29 Last Admin: 12/17/19 09:23 Dose: 100 mls/hr Documented by: Norepinephrine Bitartrate 8 mg (/ Sodium Chloride) 250 mls @ 18.75 mls/hr IV PRN PRN; Protocol PRN Reason: Hypotension Insulin Glargine (Lantus) 15 unit SQ QDAY [facility] Last Admin: 12/17/19 09:24 Dose: 15 unit Documented by: Insulin Human Lispro (Humalog) 0 unit SQ ACHS [facility]; Protocol Last Admin: 12/17/19 08:23 Dose: Not Given Documented by: Iron Carb/Multivit/[place]/Folic Acid (Multivitamin W/Minerals) 1 tab PO DAILY [facility] Last Admin: 12/17/19 09:23 Dose: 1 tab Documented by: Melatonin (Melatonin 3mg Tablet) 3 mg PO HSP PRN PRN Reason: Insomnia Metoprolol Tartrate (Lopressor) 5 mg IV Q5M PRN PRN Reason: Heart Rate > 140 bpm Mupirocin (Bactroban Oint 2%) 1 dose NARES BID [facility] Last Admin: 12/17/19 09:23 Dose: 1 dose Documented by: Ondansetron HCl (Zofran Odt) 4 mg SL Q4-6HP PRN; Protocol PRN Reason: Nausea And Vomiting Ondansetron HCl (Zofran) 4 mg IV Q4-6HP PRN; Protocol PRN Reason: Nausea And Vomiting Polyethylene Glycol (Miralax) 17 gm PO DAILYP PRN PRN Reason: Constipation Potassium Chloride (Klor-Con) 40 meq PO DAILYP PRN PRN Reason: K+ < 3.5 Last Admin: 12/16/19 09:49 Dose: 40 meq Documented by: Senna/Docusate Sodium (Senna Plus Tablet) 1 tab PO HS [facility] Last Admin: 12/16/19 21:40 Dose: Not Given Documented by: Sitagliptin Phosphate (Januvia) 50 mg PO DAILY [facility] Last Admin: 12/17/19 09:27 Dose: 50 mg Documented by: Sodium Chloride (Saline Flush) 10 ml IV Q8 [facility] Last Admin: 12/17/19 06:23 Dose: 10 ml Documented by: Sodium Chloride (Saline Flush) 10 ml IV Q12 [facility] Last Admin: 12/17/19 09:25 Dose: 10 ml Documented by: Sodium Chloride (Saline Flush) 10 ml IV UD PRN PRN Reason: before and after meds Last Admin: 12/17/19 06:22 Dose: 10 ml Documented by: Tamsulosin HCl (Flomax) 0.4 mg PO DAILY [facility] Last Admin: 12/17/19 09:24 Dose: 0.4 mg Documented by: Thiamine HCl (Vitamin B1) 100 mg PO DAILY [facility] Last Admin: 12/17/19 09:24 Dose: 100 mg Documented by: Timolol Maleate (Timoptic 0.5% Ophth Drops) 1 gtt OU BID [facility] Last Admin: 12/17/19 09:23 Dose: 1 gtt Documented by: Travoprost (Travatan Z Ophth Drops) 1 gtt OU QPM [facility] Last Admin: 12/16/19 21:39 Dose: 1 gtt Documented by: Medical - PN: A/P - Time Spent With Patient Total time spent is greater than 50% in coordination of care (as documented) at patient's floor/unit and/or counseling patient: 25 - 35 minutes (1) Severe sepsis Status: Acute Assessment and plan: * Streptococcus bacteremia likely secondary to complicated UTI. Clinically improved. Continue Rocephin per ID recommendation. DC central line. Repeat surveillance cultures. * Complicated Klebsiella UTI-clinically improved on antibiotic coverage. * Septic shock with endorgan dysfunction including altered mental status/SUMAN. Clinically resolved now off pressors. Improving endorgan dysfunction * Acute on chronic stage IIIb renal failure-creatinine starting to downtrend. Avoid nephrotoxins * Acute decompensated heart failure-currently well compensated. Echocardiogram EF 60% * History of prostate cancer follows up with Dr. Arias. On tamsulosin. * DM type II on basal prandial insulin/held glipizide * History of hypertension-hold RACHELLE inhibitor until renal function improves and systolics of 140 * Glaucoma continue travoprost * Full code * Prophylaxis heparin Plan * Continue antibiotic coverage * DC central line * Transfer to medical floor * Continue surveillance blood cultures * Prior medical condition management home meds Current Visit: Yes Medical - PN: Qual - VTE Deep Vein Thrombosis/Pulmonary Embolism Present on Admission: No
[2019-12-17] MEDS ORDERED: ONDANSETRON 4 MG/2 ML VIAL IV PRN (10:17)
[2019-12-17] MEDS ORDERED: POLYETHYLENE GLYCOL 3350 17 GM PACKET PO PRN (10:17)
[2019-12-17] MEDS ORDERED: ONDANSETRON 4 MG ODT TABLET SL PRN (10:17)
[2019-12-17] MEDS ORDERED: ACETAMINOPHEN 325 MG TABLET PO PRN (10:17)
[2019-12-17] MEDS ORDERED: POTASSIUM CHLORIDE 20 MEQ PACKET PO PRN (10:17)
[2019-12-17] MEDS ORDERED: METOPROLOL TARTRATE 5 MG/5 ML VIAL IV PRN (10:17)
[2019-12-17] MEDS ORDERED: DEXTROSE 50% 50 ML VIAL IV PRN (10:17)
[2019-12-17] MEDS ORDERED: 0.9 % SODIUM CHLORIDE 10 ML SYRINGE IV PRN (10:17)
[2019-12-17] MEDS ORDERED: MELATONIN 3 MG TABLET PO PRN (10:17)
[2019-12-17] MEDS ORDERED: BISACODYL 10 MG SUPP.RECT PR PRN (10:17)
[2019-12-17] MEDS ORDERED: ACETAMINOPHEN 650 MG/65 ML BOTTLE IV PRN (10:17)
[2019-12-17] MEDS ORDERED: DEXTROSE 31 GM ORAL.SUSP PO PRN (10:17)
[2019-12-17] MEDS ORDERED: MAGNESIUM SULFATE 2 GM/50 ML BAG IV PRN (10:17)
[2019-12-17] MEDS ORDERED: hydrALAZINE 20 MG/ML VIAL IV PRN (10:17)
[2019-12-17] MEDS ORDERED: 0.9 % SODIUM CHLORIDE 10 ML SYRINGE IV SCH (21:00)
[2019-12-17] MEDS: SENNOSIDES/DOCUSATE SODIUM 1 TAB TABLET PO SCH (21:57)
[2019-12-17] MEDS: TRAVOPROST OPHTH DROPS BOTTLE 2.5ML OU SCH (21:58)
[2019-12-18] MEDS: 0.9 % SODIUM CHLORIDE 10 ML SYRINGE IV SCH ×3 (05:29→21:14)
[2019-12-18 06:18] LABS: Hematocrit 30.9 % (40.1-51.0); Mean Corpuscular HGB Conc 32.4 g/dL (31.0-36.0); Platelet Count 194 K/mcL (140-440); RBC 3.47 M/mcL (4.63-6.08); WBC 5.9 K/mcL (4.50-11.00)
[2019-12-18 06:40] LABS: ALT/SGPT 15 U/l (0-40); AST/SGOT 20 U/l (0-37); Albumin 2.8 gm/dL (3.2-5.2); Albumin/Globulin Ratio 0.7 (1.0-2.3); Alkaline Phosphatase 96 U/L (39-117); Bilirubin,Direct < 0.2 mg/dL (0.0-0.3); Bilirubin,Total 0.3 mg/dL (0.0-1.0); Blood Urea Nitrogen 57 mg/dl (8-23); Calcium 8.5 mg/dl (8.6-10.4); Carbon Dioxide 25 mmol/L (22-30); Chloride 101 mmol/L (96-108); Globulin 4.3 gm/dL (2.2-3.7); Glomerular Filtration Rate 31; Glucose 126 mg/dL (70-105); Lactate Dehydrogenase 192 U/L (94-250); Phosphorous 3.4 mg/dL (2.7-4.5); Triglycerides 57 mg/dl (<150); Uric Acid 9.1 mg/dL (2.5-8.0)
[2019-12-18 07:21] LABS: Band Neutrophils % 1 % (0-10); Eosinophils % (Manual) 9 % (0-7); Lymphocytes % 10 % (15-49); Monocytes % (Manual) 10 % (1-12); Platelet Estimate NORMAL (NORMAL); RBC Morphology NORMAL (NORMAL); Segmented Neutrophils % 70 % (38-78)
[2019-12-18] MEDS: ASPIRIN 81 MG TAB.CHEW PO SCH (08:35)
[2019-12-18] MEDS: MULTIVIT,THER IRON,CA,FA & MIN 1 TABLET PO SCH (08:36)
[2019-12-18] MEDS: DOCUSATE SODIUM 100 MG CAPSULE PO SCH ×2 (08:36→21:11)
[2019-12-18] MEDS: FUROSEMIDE 40 MG/4 ML VIAL IV SCH ×2 (08:36→17:31)
[2019-12-18] MEDS: HEPARIN 5,000 UNIT/ML VIAL SQ SCH ×2 (08:37→21:11)
[2019-12-18] MEDS: INSULIN GLARGINE, HUMAN 1 UNIT/0.01 ML SQ SCH (08:43)
[2019-12-18] MEDS: TIMOLOL 0.5% OPHTH DROPS BOTTLE 5ML OU SCH ×2 (08:45→21:15)
[2019-12-18] MEDS: THIAMINE 100 MG TABLET PO SCH (08:56)
[2019-12-18] MEDS: TAMSULOSIN 0.4 MG CAPSULE PO SCH (08:57)
[2019-12-18] MEDS: sitaGLIPtin 50 MG TABLET PO SCH (08:57)
[2019-12-18] MEDS: MUPIROCIN OINT 2% 22GM NARES SCH ×2 (08:57→21:10)
[2019-12-18] MEDS: cefTRIAXone 2 GM in DEXTROSE 5% IN WATER 50 ML IV SCH (09:58)
--- NOTE | 2019-12-18 10:49 | Internal Med Progress Note ---
Medical - PN: Subj Patient information: Note initiated : 12/18/19 at 10:46 am Service Date, if different from initiated Date: [] Patient: Shivam Medley a 89 y/o M admitted on 12/13/19 for fever. Chief Complaint: [] Interval history: Mr. Medley is a 89 year old M with a history of CKD stage IIIb,, DM type II, prostate cancer and hypertension who presents to the ER with increasing confusion/high-grade fever 103. Symptoms started few hours prior to presentation, per family he was doing fine and was able to perform ADLs until yesterday. Symptoms have progressively gotten progressively worse with change in mental status. He has subsequently evaluated at [facility] ER where initial work-up was consistent with congestive heart failure and sepsis. Following a dose of Lasix patient became hypotensive and was promptly started on vasopressors for concerns of septic shock with evidence of endorgan dysfunction /leukocytosis. Patient remains tachycardic tachypneic and hypotensive. No clear source was identified. Hospitalist service was consulted for admission in light of above. At the time evaluation patient is fatigued lethargic and drowsy and unable to provide detailed history. Most of the history is obtained to review medical records and ER physician. Patient lives at home with his [employer]ur[employer] cuevas who left prior to my visit. Patient denies chest pain, lightheadedness, diarrhea, skin rash, joint pain. He does endorse to fever and chills. 12/13-patient in septic shock. White count 20,800. Cultures negative so far. On vasopressors to keep map at goal. Creatinine 1.7. Ultrasound kidneys today to rule out obstructive uropathy/pyelonephritis. Avoid contrast in light of elevated creatinine. Positive blood culture for gram-positive cocci. Repeat surveillance cultures. Echocardiogram pending. ID consult. Patient remains critically ill 12/14-patient now off vasopressors. White count 15.9. No overnight events. Clinical improvement noted. No fever chills. Creatinine 1.8. Urine culture Klebsiella sensitive to cephalosporin. Streptococcus on blood cultures. Surveillance cultures negative. Continue Rocephin for total of 7 days as per ID recommendations. 12/15-patient doing well. Off vasopressors. White count 8.4. Hemodynamic stable. Worsening renal function creatinine 2. Continue close monitoring. Avoid nephrotoxins. Continue PT OT nutrition support. Transfer to medical floor if remains stable. 12/16-no pressors. White count down to 6000. Central line discontinued. No overnight fever chills. Transfer to medical floor. Creatinine improving down to 1.8. No overnight fever chills. 12/17-patient doing well. No overnight events. White count down to 5.9. Cells cultures negative so far. Creatinine 1.7. Will likely undergo PICC line placement in 24 hours and subsequently discharged on IV Rocephin. Continue PT OT nutrition support - Constitutional Vitals: Vital Signs Temp Pulse Resp BP Pulse Ox 98.5 F 82 18 120/60 93 12/18/19 06:58 12/18/19 06:58 12/18/19 06:58 12/18/19 06:58 12/18/19 06:58 Period Temp Pulse Resp BP Sys/[place] Pulse Ox Last 24 Hr 97.2 F-98.8 F 67-82 16-20 103-121/52-62 92-98 Intake and Output 12/17/19 12/18/19 12/18/19 21:59 05:59 13:59 Intake Total 440 200 860 Output Total 750 351 150 Balance -310 -151 710 Weight 191 lb 14.4 oz Intake & Output: Intake & Output 12/17/19 12/18/19 12/18/19 21:59 05:59 13:59 Intake Total 440 200 860 Output Total 750 351 150 Balance -310 -151 710 Weight 191 lb 14.4 oz Intake: Oral 440 200 860 Output: Void Amount 750 350 150 # of times incontinent of urine 1 Other: Meal Dinner Breakfast Percent of Meal Consumed 100% 100% Urine Appearance Clear Urine Color Pale Straw Urine Odor Normal Stool Size Small Stool Color Brown Stool Consistency Liquid Formed Loose # Voids 1 1 # Bowel Movements 1 1 General appearance: no acute distress Exam: Alert oriented Nonlabored breathing No anxiety Nondistended abdomen Medical - PN: Obj Da - Labs CBC & Chem 7: 12/18/19 05:20 12/18/19 05:20 Labs: Abnormal Lab Results 12/18/19 12/18/19 12/17/19 05:20 05:20 05:00 RBC 3.47 L Hgb 10.0 L Hct 30.9 L Seg Neutrophils % Lymphocytes % 10 L Eosinophils % (Manual) 9 H BUN 57 H 52 H Creatinine 1.9 H 1.8 H Glucose 126 H Uric Acid 9.1 H 8.5 H Calcium 8.5 L Phosphorus Albumin 2.8 L Globulin 4.3 H 4.7 H Albumin/Globulin Ratio 0.7 L 0.7 L 12/17/19 12/16/19 12/16/19 05:00 05:10 05:10 RBC 3.78 L 3.61 L Hgb 11.0 L 10.4 L Hct 34.2 L 32.7 L Seg Neutrophils % 82 H Lymphocytes % 10 L 10 L Eosinophils % (Manual) 10 H BUN 50 H Creatinine 2.0 H Glucose 129 H Uric Acid Calcium Phosphorus 5.1 H Albumin 2.8 L Globulin 4.5 H Albumin/Globulin Ratio 0.6 L Meds: Medications Acetaminophen (Tylenol) 650 mg PO Q4-6HP PRN; Protocol PRN Reason: Per Pain Protocol/Fever > 101 Aspirin (Aspirin) 81 mg PO QDAY [facility] Last Admin: 12/18/19 08:35 Dose: 81 mg Documented by: Bisacodyl (Dulcolax) 10 mg [place] Q2-3DAYS PRN PRN Reason: Constipation Dextrose (Dextrose 50%) 0 ml IV UD PRN PRN Reason: Hypoglycemia Diagnostic Test (Pha) (Accu-Chek) 1 each FS ACHS [facility] Last Admin: 12/18/19 07:25 Dose: 1 each Documented by: Docusate Sodium (Colace) 100 mg PO BID [facility] Last Admin: 12/18/19 08:36 Dose: 100 mg Documented by: Furosemide (Lasix) 20 mg IV BIDD [facility] Last Admin: 12/18/19 08:36 Dose: 20 mg Documented by: Glucose (Insta-Glucose) 15 gm PO PRN PRN PRN Reason: Hypoglycemia Heparin Sodium (Porcine) (Heparin) 5,000 unit SQ Q12 [facility] Last Admin: 12/18/19 08:37 Dose: 5,000 unit Documented by: Hydralazine HCl (Apresoline) 10 mg IV Q4-6HP PRN PRN Reason: Hypertension Ceftriaxone Sodium 2 gm/ (Dextrose) 50 mls @ 100 mls/hr IV DAILY [facility]; Protocol Stop: 01/02/20 09:29 Last Admin: 12/18/19 09:58 Dose: 100 mls/hr Documented by: Magnesium Sulfate (Magnesium Sulfate) 2 gm in 50 mls @ 50 mls/hr IV UD PRN PRN Reason: MG = or < 1.7 Acetaminophen (Ofirmev) 650 mg in 65 mls @ 130 mls/hr IV Q6HP PRN; Protocol PRN Reason: Per Pain Protocol/Fever > 101 Insulin Glargine (Lantus) 15 unit SQ QDAY [facility] Last Admin: 12/18/19 08:43 Dose: 15 units Documented by: Insulin Human Lispro (Humalog) 0 unit SQ ACHS [facility]; Protocol Last Admin: 12/17/19 21:56 Dose: 10 unit Documented by: Iron Carb/Multivit/[place]/Folic Acid (Multivitamin W/Minerals) 1 tab PO DAILY [facility] Last Admin: 12/18/19 08:36 Dose: 1 tab Documented by: Melatonin (Melatonin 3mg Tablet) 3 mg PO HSP PRN PRN Reason: Insomnia Metoprolol Tartrate (Lopressor) 5 mg IV Q5M PRN PRN Reason: Heart Rate > 140 bpm Mupirocin (Bactroban Oint 2%) 1 dose NARES BID [facility] Last Admin: 12/18/19 08:57 Dose: 1 dose Documented by: Ondansetron HCl (Zofran Odt) 4 mg SL Q4-6HP PRN; Protocol PRN Reason: Nausea And Vomiting Ondansetron HCl (Zofran) 4 mg IV Q4-6HP PRN; Protocol PRN Reason: Nausea And Vomiting Polyethylene Glycol (Miralax) 17 gm PO DAILYP PRN PRN Reason: Constipation Potassium Chloride (Klor-Con) 40 meq PO DAILYP PRN PRN Reason: K+ < 3.5 Senna/Docusate Sodium (Senna Plus Tablet) 1 tab PO HS [facility] Last Admin: 12/17/19 21:57 Dose: 1 tab Documented by: Sitagliptin Phosphate (Januvia) 50 mg PO DAILY [facility] Last Admin: 12/18/19 08:57 Dose: 50 mg Documented by: Sodium Chloride (Saline Flush) 10 ml IV UD PRN PRN Reason: before and after meds Sodium Chloride (Saline Flush) 10 ml IV Q8 [facility] Last Admin: 12/18/19 05:29 Dose: 10 ml Documented by: Tamsulosin HCl (Flomax) 0.4 mg PO DAILY [facility] Last Admin: 12/18/19 08:57 Dose: 0.4 mg Documented by: Thiamine HCl (Vitamin B1) 100 mg PO DAILY [facility] Last Admin: 12/18/19 08:56 Dose: 100 mg Documented by: Timolol Maleate (Timoptic 0.5% Ophth Drops) 1 gtt OU BID [facility] Last Admin: 12/18/19 08:45 Dose: 1 gtt Documented by: Travoprost (Travatan Z Ophth Drops) 1 gtt OU QPM [facility] Last Admin: 12/17/19 21:58 Dose: 1 gtt Documented by: Medical - PN: A/P - Time Spent With Patient Total time spent is greater than 50% in coordination of care (as documented) at patient's floor/unit and/or counseling patient: 25 - 35 minutes (1) Severe sepsis Status: Acute Assessment and plan: * Streptococcus bacteremia likely secondary to complicated UTI. Clinically improved on Rocephin per ID recommendation. If cultures negative place PICC line in 24 hours and discharge on Rocephin * Complicated Klebsiella UTI-clinically improved on antibiotic coverage. * Septic shock with endorgan dysfunction including altered mental status/SUMAN. Clinically resolved * Acute on chronic stage IIIb renal failure-creatinine downtrending to baseline * Acute decompensated heart failure-currently well compensated. Echocardiogram EF 60% * History of prostate cancer follows up with Dr. Arias. On tamsulosin. * DM type II on basal prandial insulin/held glipizide * History of hypertension-hold RACHELLE inhibitor until renal function improves and systolics of 140 * Glaucoma continue travoprost * Full code * Prophylaxis heparin Plan * Continue antibiotic coverage * Place PICC line in 24 hours * Prior medical condition management home meds * Possible discharge in 24 hours Current Visit: Yes Medical - PN: Qual - VTE Deep Vein Thrombosis/Pulmonary Embolism Present on Admission: No
[2019-12-18] MEDS: INSULIN LISPRO 1 UNIT/0.01 ML UNIT SQ SCH ×4 (11:33→21:11)
[2019-12-18] MEDS: SENNOSIDES/DOCUSATE SODIUM 1 TAB TABLET PO SCH (21:12)
[2019-12-18] MEDS: TRAVOPROST OPHTH DROPS BOTTLE 2.5ML OU SCH (21:15)
--- NOTE | 2019-12-18 21:20 | Infectious Disease Prog Note ---
Subjective Patient information: Note initiated : 12/18/19 at 9:18 pm Service Date, if different from initiated Date: [] Patient: Shivam Medley 89 y/o M admitted on 12/13/19 for fever. Chief Complaint: [] Interval history: Pt doing fine. Endorses loose stools, but no belly pain, fever. Denies any pain elsewhere or any other symptoms. Shared plan for midline placement and IV Ceftriaxone for 5 more days. Objective Objective Narrative: ao x 3, in nad no thrush chest cta, has some basilar wheezing s1 s2 normal bs ++, nttd - Vital Signs Vital signs: Vital Signs Temp Pulse Resp BP BP Pulse Ox 12/18/19 19:45 94 12/18/19 19:10 36.3 C 70 24 H 94/54 94 12/18/19 16:00 37.0 C 75 18 111/52 98 12/18/19 12:00 36.6 C 68 18 92/48 96 12/18/19 06:58 36.9 C 82 18 120/60 93 12/18/19 03:25 37.1 C 81 20 117/61 92 12/18/19 00:35 36.8 C 67 20 105/58 93 12/17/19 22:39 36.8 C 78 20 120/57 95 Intake and Output 12/18/19 12/18/19 12/18/19 05:59 13:59 21:59 Intake Total 200 1340 720 Output Total 351 400 350 Balance -151 940 370 Intake: Oral 200 1340 720 Output: Void Amount 350 400 150 # of times incontinent of urine 1 Stool 200 Other: Meal Lunch Percent of Meal Consumed 100% Feeding Ability Assist with Tray Set Up Urine Appearance Clear Clear Urine Color Pale Straw Dark Yellow Urine Odor Normal Normal Stool Size Small Small Stool Color Brown Gael Colored Stool Consistency Formed Soft Loose Liquid # Voids 1 2 1 # Bowel Movements 1 1 Intake & Output: Intake & Output 12/18/19 12/18/19 12/18/19 05:59 13:59 21:59 Intake Total 200 1340 720 Output Total 351 400 350 Balance -151 940 370 Intake: Oral 200 1340 720 Output: Void Amount 350 400 150 # of times incontinent of urine 1 Stool 200 Other: Meal Lunch Percent of Meal Consumed 100% Feeding Ability Assist with Tray Set Up Urine Appearance Clear Clear Urine Color Pale Straw Dark Yellow Urine Odor Normal Normal Stool Size Small Small Stool Color Brown Gael Colored Stool Consistency Formed Soft Loose Liquid # Voids 1 2 1 # Bowel Movements 1 1 - Lab 12/18/19 05:20 12/18/19 05:20 Most recent lab results Calcium 8.5 mg/dl (8.6-10.4) L 12/18/19 05:20 Phosphorus 3.4 mg/dL (2.7-4.5) 12/18/19 05:20 Magnesium 1.8 mg/dL (1.6-2.5) 12/18/19 05:20 Microbiology 12/17/19 15:50 Blood Blood Culture - Preliminary 12/17/19 16:00 Blood Blood Culture - Preliminary 12/14/19 13:02 Blood Blood Culture - Preliminary 12/14/19 12:50 Blood Blood Culture - Preliminary 12/15/19 10:05 Blood Blood Culture - Preliminary 12/15/19 09:54 Blood Blood Culture - Preliminary 12/13/19 12:33 Blood Blood Culture - Final Streptococcus dysgalactiae 12/13/19 12:00 Urine - Clean Void Mid-Stream Urine Culture - Final Klebsiella oxytoca 12/14/19 02:48 Stool C. difficile GDH Antigen & Toxins - Final 12/13/19 12:55 Blood Blood Culture - Preliminary Gram positive cocci 12/13/19 16:39 Nose - Both Right and Left MRSA (PCR) - Final MRSA PCR positive Medications Active Medications: Acetaminophen (Tylenol) 650 mg PO Q4-6HP PRN; Protocol PRN Reason: Per Pain Protocol/Fever > 101 Aspirin (Aspirin) 81 mg PO QDAY [facility] Last Admin: 12/18/19 08:35 Dose: 81 mg Documented by: MARYLU Bisacodyl (Dulcolax) 10 mg [place] Q2-3DAYS PRN PRN Reason: Constipation Dextrose (Dextrose 50%) 0 ml IV UD PRN PRN Reason: Hypoglycemia Diagnostic Test (Pha) (Accu-Chek) 1 each FS ACHS [facility] Last Admin: 12/18/19 21:08 Dose: 1 each Documented by: Admin: 12/18/19 16:41 Dose: 1 each Documented by: Admin: 12/18/19 11:55 Dose: 1 each Documented by: Admin: 12/18/19 07:25 Dose: 1 each Documented by: Admin: 12/17/19 21:55 Dose: 1 each Documented by: Admin: 12/17/19 17:54 Dose: 1 each Documented by: [id number] Admin: 12/17/19 11:48 Dose: 1 each Documented by: [id number] Docusate Sodium (Colace) 100 mg PO BID [facility] Last Admin: 12/18/19 21:11 Dose: Not Given Documented by: KARAN Non-Admin Reason: freq stool Admin: 12/18/19 08:36 Dose: 100 mg Documented by: Admin: 12/17/19 21:57 Dose: 100 mg Documented by: NATE Furosemide (Lasix) 20 mg IV BIDD [facility] Last Admin: 12/18/19 17:31 Dose: 20 mg Documented by: Admin: 12/18/19 08:36 Dose: 20 mg Documented by: Admin: 12/17/19 16:38 Dose: 20 mg Documented by: MICHELLE Glucose (Insta-Glucose) 15 gm PO PRN PRN PRN Reason: Hypoglycemia Heparin Sodium (Porcine) (Heparin) 5,000 unit SQ Q12 [facility] Last Admin: 12/18/19 21:11 Dose: 5,000 unit Documented by: Admin: 12/18/19 08:37 Dose: 5,000 unit Documented by: Admin: 12/17/19 21:56 Dose: 5,000 unit Documented by: NATE Hydralazine HCl (Apresoline) 10 mg IV Q4-6HP PRN PRN Reason: Hypertension Ceftriaxone Sodium 2 gm/ (Dextrose) 50 mls @ 100 mls/hr IV DAILY [facility]; Protocol Stop: 01/02/20 09:29 Last Admin: 12/18/19 09:58 Dose: 100 mls/hr Documented by: MARYLU Magnesium Sulfate (Magnesium Sulfate) 2 gm in 50 mls @ 50 mls/hr IV UD PRN PRN Reason: MG = or < 1.7 Acetaminophen (Ofirmev) 650 mg in 65 mls @ 130 mls/hr IV Q6HP PRN; Protocol PRN Reason: Per Pain Protocol/Fever > 101 Insulin Glargine (Lantus) 15 unit SQ QDAY [facility] Last Admin: 12/18/19 08:43 Dose: 15 units Documented by: MARYLU Insulin Human Lispro (Humalog) 0 unit SQ ACHS [facility]; Protocol Last Admin: 12/18/19 21:11 Dose: 8 unit Documented by: Admin: 12/18/19 16:46 Dose: 2 unit Documented by: Admin: 12/18/19 12:03 Dose: 2 unit Documented by: Admin: 12/18/19 11:33 Dose: Not Given Documented by: MARYLU Non-Admin Reason: No Coverage Needed Admin: 12/17/19 21:56 Dose: 10 unit Documented by: Admin: 12/17/19 17:54 Dose: Not Given Documented by: MICHELLE Non-Admin Reason: No Coverage Needed Admin: 12/17/19 11:50 Dose: 4 unit Documented by: MICHELLE Iron Carb/Multivit/[place]/Folic Acid (Multivitamin W/Minerals) 1 tab PO DAILY [facility] Last Admin: 12/18/19 08:36 Dose: 1 tab Documented by: MARYLU Melatonin (Melatonin 3mg Tablet) 3 mg PO HSP PRN PRN Reason: Insomnia Metoprolol Tartrate (Lopressor) 5 mg IV Q5M PRN PRN Reason: Heart Rate > 140 bpm Mupirocin (Bactroban Oint 2%) 1 dose NARES BID [facility] Last Admin: 12/18/19 21:10 Dose: Not Given Documented by: KARAN Non-Admin Reason: not avail Admin: 12/18/19 08:57 Dose: 1 dose Documented by: Admin: 12/17/19 21:57 Dose: 1 dose Documented by: NATE Ondansetron HCl (Zofran Odt) 4 mg SL Q4-6HP PRN; Protocol PRN Reason: Nausea And Vomiting Ondansetron HCl (Zofran) 4 mg IV Q4-6HP PRN; Protocol PRN Reason: Nausea And Vomiting Polyethylene Glycol (Miralax) 17 gm PO DAILYP PRN PRN Reason: Constipation Potassium Chloride (Klor-Con) 40 meq PO DAILYP PRN PRN Reason: K+ < 3.5 Senna/Docusate Sodium (Senna Plus Tablet) 1 tab PO HS [facility] Last Admin: 12/18/19 21:12 Dose: Not Given Documented by: KARAN Non-Admin Reason: freq stool Admin: 12/17/19 21:57 Dose: 1 tab Documented by: NATE Sitagliptin Phosphate (Januvia) 50 mg PO DAILY [facility] Last Admin: 12/18/19 08:57 Dose: 50 mg Documented by: MARYLU Sodium Chloride (Saline Flush) 10 ml IV UD PRN PRN Reason: before and after meds Sodium Chloride (Saline Flush) 10 ml IV Q8 [facility] Last Admin: 12/18/19 21:14 Dose: 10 ml Documented by: Admin: 12/18/19 16:40 Dose: 10 ml Documented by: Admin: 12/18/19 05:29 Dose: 10 ml Documented by: Admin: 12/17/19 21:58 Dose: 10 ml Documented by: Admin: 12/17/19 13:55 Dose: 10 ml Documented by: [id number] Tamsulosin HCl (Flomax) 0.4 mg PO DAILY [facility] Last Admin: 12/18/19 08:57 Dose: 0.4 mg Documented by: MARYLU Thiamine HCl (Vitamin B1) 100 mg PO DAILY [facility] Last Admin: 12/18/19 08:56 Dose: 100 mg Documented by: MARYLU Timolol Maleate (Timoptic 0.5% Ophth Drops) 1 gtt OU BID [facility] Last Admin: 12/18/19 21:15 Dose: 1 gtt Documented by: KARAN Comments: would not scan Admin: 12/18/19 08:45 Dose: 1 gtt Documented by: Admin: 12/17/19 21:58 Dose: 1 gtt Documented by: NATE Travoprost (Travatan Z Ophth Drops) 1 gtt OU QPM [facility] Last Admin: 12/18/19 21:15 Dose: 1 gtt Documented by: KARAN Comments: would not scan Admin: 12/17/19 21:58 Dose: 1 gtt Documented by: NATE Assessment and Plan - Narrative A/P Narrative: A: 1. Streptococcus dysgalactiae bacteremia: 2/2 sets +ve on 12/12 - likely source or GI tract - off vasopressors since 12/13 - physical exam neg for any localized source of infection - TTE neg for any endocarditis. overall uncomplicated bacteremia 2. Hx of prostate cancer: not on any treatment 3. Diarrhea: antibiotic associated, laxatives - Cdiff tested few days neg - WBC normal, afebrile 4. COPD: - no signs of resp distress Recommendations: - Continue IV Ceftriaxone 2 gm q24 hrs - Rt IJ central line pulled out yesterday. Repeat blood Cx neg so far. Midline placement tomorrow, and pt could be discharged to finish a 7-day course of IV Ceftriaxone with stop date of 12/24/2019 - counseled to use incentive spirometry - If diarrhea gets worse, or pt spikes a fever or has belly pain; he should be tested for Cdiff again NO ID f/u needed. Midline could be pulled out by the infusion center after finishing antibiotics Eugene Nicole MD Infectious diseases
[2019-12-19] MEDS: 0.9 % SODIUM CHLORIDE 10 ML SYRINGE IV SCH (05:27)
[2019-12-19] MEDS: INSULIN LISPRO 1 UNIT/0.01 ML UNIT SQ SCH ×2 (07:16→11:44)
[2019-12-19] MEDS: THIAMINE 100 MG TABLET PO SCH (08:23)
[2019-12-19] MEDS: sitaGLIPtin 50 MG TABLET PO SCH (08:23)
[2019-12-19] MEDS: MULTIVIT,THER IRON,CA,FA & MIN 1 TABLET PO SCH (08:23)
[2019-12-19] MEDS: DOCUSATE SODIUM 100 MG CAPSULE PO SCH (08:23)
[2019-12-19] MEDS: ASPIRIN 81 MG TAB.CHEW PO SCH (08:23)
[2019-12-19] MEDS: TAMSULOSIN 0.4 MG CAPSULE PO SCH (08:23)
[2019-12-19] MEDS: HEPARIN 5,000 UNIT/ML VIAL SQ SCH (08:24)
[2019-12-19] MEDS: FUROSEMIDE 40 MG/4 ML VIAL IV SCH (08:24)
[2019-12-19] MEDS: MUPIROCIN OINT 2% 22GM NARES SCH (08:24)
[2019-12-19] MEDS: INSULIN GLARGINE, HUMAN 1 UNIT/0.01 ML SQ SCH (08:24)
[2019-12-19] MEDS: TIMOLOL 0.5% OPHTH DROPS BOTTLE 5ML OU SCH (08:26)
[2019-12-19] MEDS: cefTRIAXone 2 GM in DEXTROSE 5% IN WATER 50 ML IV SCH (08:41)
--- NOTE | 2019-12-19 11:07 | Discharge Summary ---
Medical - DS: Prov Patient information: Note initiated : 12/19/19 at 11:04 am Service Date, if different from initiated Date: [] Patient: Shivam Medley 89 y/o M admitted on 12/13/19 for fever. Chief Complaint: [] Date of admission: 12/13/19 16:15 Discharge date: 12/19/19 Primary care physician: Rogelio Lubin Consults: 12/13/19 13:37 Consult to Physician [CONS] Stat Comment: Consulting Provider: Dheeraj Hernandez Reason For Exam: Physician to Consult 12/14/19 10:48 Consult to Physician [CONS] Routine Comment: Consulting Provider: Eugene Nicole Reason For Exam: Physician to Consult Medical - DS: Meds - Discharge Medications Prescriptions: cefTRIAXone [Rocephin] 2 gm IV DAILY #5 vial Prescription Printed Active and Home Medications: Home Medications aspirin 81 mg tablet,delayed release 81 mg PO QDAY tab 04/09/15 [History Confirmed 12/13/19 Last Taken 10/23/15 09:00] calcitriol 0.25 mcg capsule 0.25 mcg PO QDAY cap 04/09/15 [History Confirmed 12/13/19 Last Taken 10/22/15 09:00] travoprost 0.004 % eye drops 1 drp OU QPM ml 04/09/15 [History Confirmed 12/14/19 Last Taken 10/22/15 23:00] Acetaminophen [Tylenol] 650 mg PO Q4HP PRN #0 tab 10/26/15 [Rx Confirmed 12/13/19 Last Taken Unknown] lisinopril 20 mg tablet 25 mg PO QDAY 10/05/16 [History Confirmed 12/13/19 Last Taken Unknown] ergocalciferol (vitamin D2) 1,000 unit capsule 2,000 unit PO QDAY cap 11/08/18 [History Confirmed 12/13/19 Last Taken Unknown] glipizide 10 mg tablet 10 mg PO BID 11/08/18 [History Confirmed 12/13/19 Last Taken Unknown] insulin detemir U-100 100 unit/mL (3 mL) subcutaneous pen 15 unit SUB-Q QDAY ml 11/08/18 [History Confirmed 12/13/19 Last Taken Unknown] magnesium L-lactate 84 mg tablet,extended release 168 mg PO BID 11/08/18 [History Confirmed 12/13/19 Last Taken Unknown] timolol 0.5 % eye drops 1 drp OU BID 02/15/19 [History Confirmed 12/14/19 Last Taken Unknown] Tamsulosin [Flomax] 1 tab PO DAILY 12/13/19 [History Confirmed 12/13/19 Last Taken Unknown] cefTRIAXone [Rocephin] 2 gm IV DAILY #5 vial 12/19/19 [Rx Last Taken Unknown] Medical - DS: Hosp Hospital Course: Discharge diagnosis * Streptococcus bacteremia. Clinically improved on Rocephin per ID recommendation. Repeat cultures negative. Per ID additional 5 days of IV Rocephin. Midline will be placed prior to discharge * Complicated Klebsiella UTI-clinically improved on antibiotic coverage. * Septic shock with endorgan dysfunction including altered mental status/SUMAN. 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 Echocardiogram EF 60% * History of prostate cancer follows up with Dr. Arias. On tamsulosin. 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 Medley is a 89 year old M with a history of CKD stage IIIb,, DM type II, prostate cancer and hypertension who presents to the ER with increasing confusion/high-grade fever 103. Symptoms started few hours prior to presentation, per family he was doing fine and was able to perform ADLs until yesterday. Symptoms have progressively gotten progressively worse with change in mental status. He has subsequently evaluated at [facility] ER where initial work-up was consistent with congestive heart failure and sepsis. Following a dose of Lasix patient became hypotensive and was promptly started on vasopressors for concerns of septic shock with evidence of endorgan dysfunction/leukocytosis. Patient remains tachycardic tachypneic and hypotensive. No clear source was identified. Hospitalist service was consulted for admission in light of above. At the time evaluation patient is fatigued lethargic and drowsy and unable to provide detailed history. Most of the history is obtained to review medical records and ER physician. Patient lives at home with his [employer] cuevas who left prior to my visit. Patient denies chest pain, lightheadedness, diarrhea, skin rash, joint pain. He does endorse to fever and chills. 12/13-patient in septic shock. White count 20,800. Cultures negative so far. On vasopressors to keep map at goal. Creatinine 1.7. Ultrasound kidneys today to rule out obstructive uropathy/pyelonephritis. Avoid contrast in light of elevated creatinine. Positive blood culture for gram-positive cocci. Repeat surveillance cultures. Echocardiogram pending. ID consult. Patient remains critically ill 12/14-patient now off vasopressors. White count 15.9. No overnight events. Clinical improvement noted. No fever chills. Creatinine 1.8. Urine culture Klebsiella sensitive to cephalosporin. Streptococcus on blood cultures. Surveillance cultures negative. Continue Rocephin for total of 7 days as per ID recommendations. 12/15-patient doing well. Off vasopressors. White count 8.4. Hemodynamic stable. Worsening renal function creatinine 2. Continue close monitoring. Avoid nephrotoxins. Continue PT OT nutrition support. Transfer to medical floor if remains stable. 12/16-no pressors. White count down to 6000. Central line discontinued. No overnight fever chills. Transfer to medical floor. Creatinine improving down to 1.8. No overnight fever chills. 12/17-patient doing well. No overnight events. White count down to 5.9. Cells cultures negative so far. Creatinine 1.7. Will likely undergo PICC line placement in 24 hours and subsequently discharged on IV Rocephin. Continue PT OT nutrition support 12/18-patient doing well. No overnight events. No concerns per staff. No fever chills nausea vomiting. Discharging with advised to continue additional 5 days of IV Rocephin. Midline being placed. Discharge instructions as below. Discharge diagnosis: . - Time Spent with Patient Total time spent providing and/or coordinating discharge services: Greater than 30 minutes Medical - DS: Exam - Constitutional Vitals: Vital Signs Temp Pulse Resp BP BP Pulse Ox 12/19/19 07:47 98.8 F 77 20 112/52 96 12/19/19 07:00 18 96 12/19/19 04:14 98.3 F 75 22 132/62 96 12/18/19 22:47 97.8 F 72 22 120/60 97 12/18/19 19:45 94 12/18/19 19:10 97.4 F 70 24 H 94/54 94 12/18/19 16:00 98.6 F 75 18 111/52 98 12/18/19 12:00 97.8 F 68 18 92/48 96 Intake and Output 12/18/19 12/19/19 12/19/19 21:59 05:59 13:59 Intake Total 720 275 500 Output Total 350 850 150 Balance 370 -575 350 Intake: Oral 720 275 500 Output: Void Amount 150 625 150 Urine/Stool Mix 200 225 Other: Urine Appearance Clear Clear Urine Color Dark Yellow Pale Pale Urine Odor Normal Normal Normal Stool Size Small Small Stool Color Gael Colored Gael Colored Stool Consistency Soft Liquid Liquid # Voids 1 # Bowel Movements 1 Weight 191 lb 14.4 oz Medical - DS: Data Labs on day of discharge: Preliminary micro results at discharge 12/17/19 15:50 Blood Culture - Preliminary Blood 12/17/19 16:00 Blood Culture - Preliminary Blood 12/14/19 13:02 Blood Culture - Preliminary Blood 12/14/19 12:50 Blood Culture - Preliminary Blood 12/15/19 10:05 Blood Culture - Preliminary Blood 12/15/19 09:54 Blood Culture - Preliminary Blood Medical - DS: A/P - Patient/Caregiver Discharge Instructions Activity: increase activity as tolerated Diet: Regular Diet Additional Instructions: Follow-up PCP in 5 days I recommend primary care physician to check CBC BMP UA as a posthospital follow- up in 1 week. Antibiotics for additional 5 days Midline care Continue fall precautions Return to ER if worsening fever chills shortness of breath, diarrhea, bleeding Review risk and side effect profile of medications including antibiotics. Side effect may include mild to severe reaction including rash, diarrhea, cdiff and even which can be prevented by close follow-up with PCP and monitoring for side effects Continue diet and activity as advised Discussed importance of medication adherence Please review medication list with patient prior to discharge Please schedule follow-up with PCP/Providers prior to discharge and provide printouts Prescriptions: cefTRIAXone [Rocephin] 2 gm IV DAILY #5 vial Prescription Printed - Problem Maintenance (1) Severe sepsis Status: Acute - Follow up Plan Follow up with: Rogelio Lubin ARNP [Primary Care Provider] - Disposition: Home, Self-Care Prognosis: Serious Rehab Potential: Fair I certify that the patient requires SNF services: No Overall status at discharge: patient is progressing back to baseline Medical - DS: Qual - VTE Deep Vein Thrombosis/Pulmonary Embolism Present on Admission: No
== END 2019-12-19 13:25 | disposition home or self-care (01) | DRG 871 ==
LOC: ED 11:22 → ICU 16:15 → MEDSUR 12-17 20:16
PROVIDERS: ADMIT Internal Medicine; ATTEND Internal Medicine